=== PATIENT | female | born 1965 | race Two or more races ===

== ENCOUNTER 2018-12-19 20:09 | Emergency (ER) | payer OTHER ==
[2018-12-19 20:26] VITALS: BP 160/101; TEMP 98.3; BMI 28.3
--- NOTE | 2018-12-19 20:53 | PDOC ---
History of Present Illness - General Chief Complaint: Shortness of Breath Stated Complaint: DIFFICULTY BREATHING Time Seen by Provider: 12/19/18 20:36 History Source: Patient Exam Limitations: No Limitations - History of Present Illness Initial Comments: 12/19/18 20:48 53yo F with PMH of HTN, HLD presenting to ED with sob and cough that started yesterday. Pt was diagnosed with pneumonia at PMD office 2 weeks ago. She was given antibiotics and a steroid pack. She states the medications was finished 4d ago on . Since yesterday, the cough as returned and it is worse than when she was originally diagnosed. She is coughing up clear sputum. She endorses sob and chest pain when she coughs and endorses low grade fever (99) yesterday night. Denies headache, n/v/d, abdominal pain, exertional cp, back pain, sick contacts, recent travel, leg swelling. PMH: see hpi PSH: none Meds: metoprolol, atorvastatin Allergies: nkda Social: denies tobacco use PMD: Rosy Hernandez Past History - Past Medical History Allergies/Adverse Reactions: Allergies Allergy/AdvReac Type Severity Reaction Status Date / Time No Known Allergies Allergy Verified 12/19/18 20:26 Home Medications: Ambulatory Orders Albuterol Sulfate Inhaler - [Ventolin HFA Inhaler -] 1 - 2 inh PO QID #1 inhaler 12/19/18 COPD: No GI Disorders: (HEARTBURN) HTN: Yes Hypercholesterolemia: Yes - Surgical History Abdominal Surgery: Yes Appendectomy: Yes - Suicide/Smoking/Psychosocial Hx Smoking History: Unknown if ever smoked Hx Alcohol Use: No Drug/Substance Use Hx: No Substance Use Type: None Hx Substance Use Treatment: No Review of Systems - Review of Systems Constitutional: Yes: Fever. No: Chills HEENTM: No: Symptoms Reported Respiratory: Yes: Cough, Shortness of Breath. No: Stridor, Wheezing, Hemoptysis Cardiac (ROS): Yes: See HPI, Chest Pain. No: Lightheadedness, Palpitations, Syncope ABD/GI: No: Symptoms Reported : No: Symptoms Reported Musculoskeletal: No: Symptoms Reported Integumentary: No: Symptoms Reported Neurological: No: Symptoms reported *Physical Exam - Vital Signs Last Vital Signs Temp Pulse Resp BP Pulse Ox 98.3 F 95 H 18 160/101 H 100 12/19/18 20:22 12/19/18 20:22 12/19/18 20:22 12/19/18 20:22 12/19/18 20:22 - Physical Exam General Appearance: Yes: Nourished, Appropriately Dressed. No: Apparent Distress HEENT: positive: EOMI, EZEKIEL, Normal ENT Inspection Neck: positive: Trachea midline, Supple Respiratory/Chest: positive: Lungs Clear, Normal Breath Sounds. negative: Crackles, Rhonchi, Stridor, Wheezing Cardiovascular: positive: Regular Rhythm, Regular Rate, S1, S2. negative: Edema , JVD, Murmur Vascular Pulses: Dorsalis-Pedis (R): 2+, Doralis-Pedis (L): 2+ Gastrointestinal/Abdominal: positive: Normal Bowel Sounds, Soft. negative: Tender Musculoskeletal: negative: CVA Tenderness Extremity: positive: Normal Capillary Refill Integumentary: positive: Normal Color, Dry, Warm Neurologic: positive: brick yard hand II-XII NML intact, Fully Oriented, Alert, Normal Mood/ Affect, Normal Response, Motor Strength 09/25 ED Treatment Course - LABORATORY CBC & Chemistry Diagram: 12/19/18 21:17 12/19/18 22:15 - RADIOLOGY Radiology Studies Ordered: Category Date Time Status CHEST PA & LAT [RAD] Stat Radiology 12/19/18 20:37 Ordered Medical Decision Making - Medical Decision Making 12/19/18 20:52 53yo F with PMH of HTN, HLD presenting to ED with sob and cough that started yesterday. Pt was diagnosed with pneumonia at PMD office 2 weeks ago. She was given antibiotics and a steroid pack. She states the medications was finished 4d ago on . Since yesterday, the cough as returned and it is worse than when she was originally diagnosed. She is coughing up clear sputum. She endorses sob and chest pain when she coughs and endorses low grade fever (99) yesterday night. Denies headache, n/v/d, abdominal pain, exertional cp, back pain, sick contacts, recent travel, leg swelling. Vitals: hypertension PE: lungs cta, dry cough Ddx includes but not limited to pna, post nasal drip, ptx, acs, pe Wells: low suspicion for pe. more likely cough and sob due to pna or post nasal drip. -labs -duonebs -ekg, cxr ek12/19/18 23:11 labs wnl. pt reports feeling better after breathing treatments. cxr: no infiltrates, consolidations or effusion. *DC/Admit/Observation/Transfer Diagnosis at time of Disposition: Cough, Bronchitis - Discharge Dispostion Disposition: HOME Condition at time of disposition: Improved Decision to Admit order: No - Prescriptions Prescriptions: Albuterol Sulfate Inhaler - [Ventolin HFA Inhaler -] 1 - 2 inh PO QID #1 inhaler - Referrals Referrals: Lebron Hernandez MD [Primary Care Provider] - - Patient Instructions Printed Discharge Instructions: DI for Cough -- Adult Additional Instructions: You were seen in the emergency room today for cough. This is likely due to a viral infection or a bronchitis. This cough can last for a few weeks. Keep yourself well hydrated, you can take cough drops as needed. A prescription for an inhaler was sent to your pharmacy. Use as directed. You can take Nyquil or dextromethorphan for cough as needed. Please make an appointment with your doctor regarding this emergency department visit. Come back to the emergency room if cough gets worse, you develop fever, you have difficulty breathing, you cough up phlegm, you develop chest pains or if any new concerning symptom develops. Thank you - Post Discharge Activity
[2018-12-19 21:39] LABS: BASO % 0.8 % (0-2.0); EOS % 2.5 % (0-4.5); HEMATOCRIT 38.1 % (32.4-45.2); MCH 25.6 pg (25.7-33.7); MEAN CELL VOLUME 75.3 fl (80-96); MEAN PLT VOLUME 7.9 fl (7.5-11.1); MONO % 7.9 % (3.8-10.2); NEUT % 59.8 % (42.8-82.8); PLATELET COUNT 265 K/MM3 (134-434); RBC 5.06 M/mm3 (3.60-5.2); WHITE BLOOD COUNT 9.6 K/mm3 (4.0-10.0)
[2018-12-19] MEDS ORDERED: ALBUTEROL SO4 2.5/IPRATROPIUM 0.5 INH SOL 3 ML VIAL.NEB. NEB ONE ×4 (21:50→22:21)
[2018-12-19 22:33] VITALS: PULSE 90
[2018-12-19 23:07] LABS: ALBUMIN 3.8 g/dl (3.4-5.0); BILIRUBIN,TOTAL 0.5 mg/dL (0.2-1); BLOOD UREA NITROGEN 15.1 mg/dL (7-18); CALCIUM 9.2 mg/dL (8.5-10.1); CREATININE 0.8 mg/dL (0.55-1.3); POTASSIUM 4.1 mmol/L (3.5-5.1)
--- NOTE | 2018-12-19 23:50 | PDOC ---
Documentation entered by Juan J Gupta SCRIBE, acting as scribe for María Florence MD. María Florence MD: This documentation has been prepared by the Candy weiss Elijah, SCRIBE, under my direction and personally reviewed by me in its entirety. I confirm that the documentation accurately reflects all work, treatment, procedures, and medical decision making performed by me. Attending Attestation - Resident Resident Name: Loretta Alaniz - ED Attending Attestation I have performed the following: I have examined & evaluated the patient, The case was reviewed & discussed with the resident, I agree w/resident's findings & plan - HPI HPI: 12/19/18 21:59 Patient is a 53 year old female with a significant past medical history of HTN and HLD who presents to the ED with a worsening productive cough of clear sputum beginning x1 day prior. Patient was recently diagnosed with Pneumonia by her PCP x1 week ago and was given antibiotics that finished x4 days ago. Patient notes that her cough has returned associates SOB, chest pain and fever. Denies headache, Nausea, vomiting, and diarrhea. Allergies: NKA PCP: Dr. Hernandez - Physicial Exam PE: 12/19/18 22:03 GENERAL: Awake, alert, and fully oriented, in no acute distress HEAD: No signs of trauma EYES: PERRLA, EOMI, sclera anicteric, conjunctiva clear ENT: Auricles normal inspection, hearing grossly normal, nares patent, oropharynx clear without exudates. Moist mucosa NECK: Normal ROM, supple, no lymphadenopathy, JVD, or masses LUNGS: Breath sounds equal, clear to auscultation bilaterally. No wheezes, and no crackles HEART: Regular rate and rhythm, normal S1 and S2, no murmurs, rubs or gallops ABDOMEN: Soft, nontender, normoactive bowel sounds. No guarding, no rebound. No masses EXTREMITIES: Normal range of motion, no edema. No clubbing or cyanosis. No cords, erythema, or tenderness NEUROLOGICAL: Cranial nerves II through XII grossly intact. Normal speech, normal gait SKIN: Warm, Dry, normal turgor, no rashes or lesions noted. - Medical Decision Making 12/19/18 21:56 53-year-old female with several weeks of coughing and being diagnosed pneumonia by Dr. Lebron Hernandez in his office. She finished her medications that were prescribed to her on , but states coughing is now getting worse. She has anterior chest wall pain from her coughing. Past medical history significant for hypertension and hyperlipidemia 12/19/18 21:56 social history patient states she is a nonsmoker, does not use alcohol 12/19/18 23:34 labs are unremarkable 12/19/18 23:46 chest x-ray did not show any significant effusions, no consolidation and no infiltrates. she is not febrile and her CBC is unremarkable chemistries reviewed and troponin is negative, no metabolic abnormalities noted the patient did receive bronchodilator treatments and felt better. Patient is 100% pulse ox on room air. She is not hypoxic, she does not have any retractions with breathing her EKG is unremarkable. Impression bronchitis/reactive airway disease Plan patient will be discharged with prescription for bronchodilators, cough medicine
--- NOTE | 2018-12-20 09:29 | EKG ---
Test Reason : Blood Pressure : / mmHG Vent. Rate : 123 BPM Atrial Rate : 092 BPM P-R Int : 144 ms QRS Dur : 074 ms QT Int : 346 ms P-R-T Axes : 019 034 056 degrees QTc Int : 495 ms NORMAL SINUS RHYTHM BASELINE ARTIFACT OTHERWISE NORMAL ECG Confirmed by Ish Alonzo MD ([id number]) on 12/20/2018 9:28:56 AM Referred By: Confirmed By:Ish Alonzo MD
== END 2018-12-20 00:07 | disposition home or self-care (01) ==
LOC: JER 20:09
PROC: 3E0F7GC Introduction of Other Therapeutic Substance into Respiratory Tract, Via Natural or Artificial Opening (ICD-10-PCS; principal; 2018-12-19)
PROC: 3E0F7GC Introduction of Other Therapeutic Substance into Respiratory Tract, Via Natural or Artificial Opening (ICD-10-PCS; 2018-12-19)
DX: J40 Bronchitis, not specified as acute or chronic (principal); I10 Essential (primary) hypertension; E78.5 Hyperlipidemia, unspecified; Z87.01 Personal history of pneumonia (recurrent)
CPT/HCPCS: 36415; 71046-TC-FY; 80053; 84484; 85025; 93005; 93010; 94640; 99283-25

== ENCOUNTER 2019-04-17 08:53 | Observation (INO) | payer OTHER ==
[2019-04-17] MEDS ORDERED: SODIUM CHLORIDE 1,000 ML IV SCH (09:15)
--- NOTE | 2019-04-17 09:15 | PDOC ---
History of Present Illness - General Chief Complaint: CVA/TIA Stated Complaint: LT SIDE HEADACHE/NECK/ARM PAIN Time Seen by Provider: 04/17/19 09:15 History Source: Patient Exam Limitations: No Limitations - History of Present Illness Initial Comments: 54 year old female with PMH HTN, HLD, chronic headaches (1X a week, frontal, band like) presented to ED for left sided headache associated with left sided neck pain and left upper extremity weakness x3 weeks. Pt reported she did not take her medications this AM, as she did not eat breakfast, but usually is compliant and has not noticed her BP has been out of control lately. She reported her headache today is left sided, which is not in her usual headache location, constant, pounding, alleviated momentarily by Tylenol but always returns. Pt reported her headaches are usually ammenable to Tylenol. She denied fever, chest pain, shortness of breath, cough, nausea, vomiting, recent injury, recent heavy lifting. She admitted to intermittent room spinning episodes over the last week. She reported she has had similar room spinning episodes x2 years ago, but was never given medication or an explanation. ROS General: denied fever, chills, generalized weakness. HEENT: denied sore throat, rhinorrhea, ear pain. Cardiovascular: denied chest pain, palpitations, syncope, diaphoresis. Respiratory: denied shortness of breath, cough, sputum production, hemoptysis. Gastrointestinal: denied abdominal pain, nausea, vomiting, diarrhea, constipation, blood in stool. Genitourinary: denied dysuria, increased urinary frequency, hematuria, urinary incontinence, flank pain. Back: denied back pain. Musculoskeletal: denied joint pain, muscle pain, joint swelling. Neurological: admitted to headache, dizziness, weakness. denied numbness, tingling. Integumentary: denied rash, laceration, abrasion. Hematologic/Lymphatic: denied bruising or bleeding. PE Constitutional: Well-nourished, Well-developed, appearing stated age. HEENT: head is normocephalic, atraumatic. EOMI. PERRLA. Neck: supple. Full ROM. Cardiovascular: regular heart rhythm. no murmurs. no pericardial friction rub. Respiratory: clear to auscultation bilaterally. no crackles, rhonchi or wheezing. no stridor. Gastrointestinal: soft, nontender. normal bowel sounds. no rebound, guarding, masses. Extremities: peripheral pulses intact. no lower extremity edema. Neurological: alert. oriented x3. CN2-12 intact. 5/5 strength all extremities, but decreased ballistics laboratory gunsmith strength on the left hand when compared to the right hand. normal ankle plantar flexion. full sensation all extremities and bilateral face , but reported decreased sensation to the LLE. romberg negative. no ataxia. gait normal. Psych: awake, alert, oriented x3. follows commands. answers questions appropriately. NIH Stroke Scale - Last Known Well Date/Time & Onset Date Last Known Well: 03/27/19 - Initial Evaluation Level of consciousness: Alert Ask patient the month and their age: Answers both correctly Ask patient to open & close eyes; make fist and let go: Obeys both correctly Best gaze (horizontal eye movement): Normal Visual field testing: No visual field loss Facial paresis (Show teeth/raise eyebrows/close eyes tight): Normal symmetrical movement Motor Function: Left Arm: Normal Motor Function: Right Arm: Normal (extends arm 90 (or 45) degrees for 10 seconds without drift Motor Function: Left Leg: Normal (extends leg 30 degrees for 5 seconds without drift) Motor Function: Right Leg: Normal (extends leg 30 degrees for 5 seconds without drift) Limb Ataxia: No ataxia Sensory(Use pinprick test arms,legs,trunk,face/side to side): Mild to moderate decrease in sensation Best language (Describe picture, name items, read sentences): No Aphasia Dysarthria (read several words): Normal articulation Extinction and Inattention: No abnormality - Total Score NIH Stroke Scale Score: 1 Past History - Past Medical History Allergies/Adverse Reactions: Allergies Allergy/AdvReac Type Severity Reaction Status Date / Time No Known Allergies Allergy Verified 04/17/19 09:03 Home Medications: Ambulatory Orders Albuterol Sulfate Inhaler - [Ventolin HFA Inhaler -] 1 - 2 inh PO QID #1 inhaler 12/19/18 - Immunization History Immunization Up to Date: Yes - Psycho Social/Smoking Cessation Hx Smoking History: Never smoked Information on smoking cessation initiated: No Hx Alcohol Use: No Drug/Substance Use Hx: No Substance Use Type: None Hx Substance Use Treatment: No *Physical Exam - Vital Signs Last Vital Signs Temp Pulse Resp BP Pulse Ox 98.2 F 88 17 170/110 H 98 04/17/19 09:03 04/17/19 09:03 04/17/19 09:03 04/17/19 09:03 04/17/19 09:03 ED Treatment Course - LABORATORY CBC & Chemistry Diagram: 04/17/19 09:40 04/17/19 09:40 Medical Decision Making - Medical Decision Making 54 year old female with above PMH presented to ED for left sided headache, left sided neck pain, left upper extremity weakness. Initial Vital Signs Temp Pulse Resp BP Pulse Ox 98.2 F 88 17 170/110 H 98 04/17/19 09:03 04/17/19 09:03 04/17/19 09:03 04/17/19 09:03 04/17/19 09:03 Afebrile. No tachycardia. No tachypnea. Hypertensive. No hypoxia on room air. Labs ordered: CBC, CMP, mag, serum , UA/UC, lipids, bnp, troponin Imaging ordered: CT head, CT cervical spine, CXR Medications ordered: tylenol IV, reglan 10 mg IV once, benadryl 25 mg IV once, normal saline bolus 1000 cc once EKG performed at 0909: rate 81, regular rhythm, normal axis, normal intervals, no acute ST changes. 04/17/19 13:39 CT head report: Name: [facility] DEPARTMENT OF RADIOLOGY Phys: Juani Sam RESIDENT : 1965 Age: 54 Sex: F [facility] Acct: [id number] Loc: [address] Exam Date: 04/17/19 Status: [place] [address] Unit Number: [id number] EXAM#: TYPE/EXAM: RESULT: [id number] CT/HEAD CT (STROKE) History: CVA, TIA. CT scan of the brain c-. Comparison study: CT brain July 06, 2014. . Findings. Serial axial images of the brain were obtained from foramen magnum to the cranial vertex without intravenous contrast with coronal, sagittal reconstruction.. There is no evidence of acute subarachnoid hemorrhage, acute intra-axial or extra-axial fluid collection consistent with subdural or epidural hematoma. No mass effect, midline shift, acute ischemic changes, herniation or edema is present. No evidence of effacement of the cortical sulci , zone of low attenuation, loss mirza matter white matter differentiation. The CSF spaces unchanged from prior examination. No evidence of hydrocephalus. Intracranial vascular calcifications are noted. Examination of the bone windows show no fracture. The visualized paranasal sinuses and mastoid air cells are clear. Impression. No evidence of acute intracranial hemorrhage, edema, midline shift, mass effect, or skull fracture. No CT evidence of acute territorial, acute transcortical infarct. Reported By: Rory Zabala MD 04/17/[address] cervical spine report: Name: JEET SMITH DEPARTMENT OF RADIOLOGY Phys: Juani Sam RESIDENT : 1965 Age: 54 Sex: F [facility] Acct: [id number] Loc: [address] Exam Date: 04/17/19 Status: [place] [id number] Unit Number: [id number] ACCESSION # : [id number] EXAM#: TYPE/EXAM: RESULT: [id number] CT/CERVICAL SPINE CT W/O CONTR Reason for the study. Neck pain with left-sided weakness CT scan of the cervical spine C-. Direct axial images were obtained from the base of the skull through T2-T3.. The study was supplemented with computer-generated sagittal, coronal reconstruction images. Findings. Straightening of the cervical spine is noted on the sagittal reconstruction images. No acute fracture, compression deformity, of subluxation is seen. Normal relationship of odontoid to anterior arch of C1. Intact odontoid. Symmetrical articulation of atlantoaxial and occipito atlantal joints. The visualized portion of the posterior fossa, skull base, and uppermost of the thoracic spine show no abnormality. Normal height of vertebral bodies. No evidence of central spinal canal stenosis. No evidence of significant neural foraminal narrowing. The intraspinal contents cannot be adequately evaluated due to the beam hardening artifacts. The airways are patent. No evidence of prevertebral soft tissue swelling. The lung apices are clear. Medial deviation, retropharyngeal course of the left distal common carotid artery. Impression. No evidence of acute fracture, compression deformities, subluxation, prevertebral soft tissue swelling. Reported By: Rory Zabala MD 04/17/[address] Alberts consulted, he recommended MRI brain and c-spine without contrast. Pt informed of results and plan for care, pt agreed with plan for care. Pt reported resolution of her headache. Pt to be admitted. PCP Mary --> Rodo Discharge - Discharge Information Problems reviewed: Yes Clinical Impression/Diagnosis: Left hand weakness Headache Qualifiers: Headache type: unspecified Headache chronicity pattern: acute headache Intractability: not intractable Qualified Code(s): R51 - Headache Condition: Stable - Admission Yes - Follow up/Referral Referrals: Lebron Hernandez MD [Primary Care Provider] - - Patient Discharge Instructions - Post Discharge Activity
[2019-04-17] MEDS ORDERED: ACETAMINOPHEN 1000 MG/100 ML VIAL (NON FORMULARY) IVPB ONE (09:30)
[2019-04-17] MEDS ORDERED: METOCLOPRAMIDE HCL INJECTION 10 MG/2 ML VIAL IVPUSH ONE (09:30)
[2019-04-17] MEDS ORDERED: ACETAMINOPHEN INJECTION 100 ML IVPB ONE (09:34)
[2019-04-17] MEDS ORDERED: METOCLOPRAMIDE HCL INJECTION 10 MG/2 ML VIAL ONE (09:34)
[2019-04-17 10:28] LABS: PROTHROMBIN TIME (PATIENT) 11.8 SEC (9.7-13.0)
[2019-04-17 10:31] LABS: ACTIVATED PTT 33.6 SECONDS (25.2-36.5)
[2019-04-17 10:45] LABS: ALBUMIN 3.8 g/dl (3.4-5.0); BILIRUBIN,TOTAL 0.4 mg/dL (0.2-1); BLOOD UREA NITROGEN 10.7 mg/dL (7-18); CALCIUM 9.2 mg/dL (8.5-10.1); CREATININE 0.8 mg/dL (0.55-1.3); POTASSIUM 3.9 mmol/L (3.5-5.1); TOT PROT 7.8 g/dl (6.4-8.2)
[2019-04-17 10:55] LABS: HEMOGLOBIN 11.9 GM/dL (10.7-15.3); MEAN PLT VOLUME 8.3 fl (7.5-11.1); RDW 14.5 % (11.6-15.6)
[2019-04-17 11:02] LABS: MAGNESIUM 2.4 mg/dL (1.8-2.4); N-TERMINAL BNP 56.3 pg/ml (5-125); PHOSPHOROUS 3.4 mg/dL (2.5-4.9)
[2019-04-17 11:08] LABS: BASO % 0.5 % (0-2.0); HEMATOCRIT 35.2 % (32.4-45.2); LYMPH % 35.3 % (8-40); MCH 25.6 pg (25.7-33.7); MCHC 33.9 g/dl (32.0-36.0); MEAN CELL VOLUME 75.5 fl (80-96); MONO % 10.9 % (3.8-10.2); NEUT % 51.3 % (42.8-82.8); PLATELET COUNT 230 K/MM3 (134-434); RBC 4.66 M/mm3 (3.60-5.2); WHITE BLOOD COUNT 5.8 K/mm3 (4.0-10.0)
[2019-04-17 11:16] LABS: PH,URINE 6.5 (5.0-8.0); URINE APPEARANCE CLEAR; URINE BILIRUBIN NEGATIVE (NEGATIVE); URINE COLOR YELLOW; URINE GLUCOSE (UA) NEGATIVE (NEGATIVE); URINE KETONE NEGATIVE (NEGATIVE); URINE LEUK ESTERASE NEGATIVE (NEGATIVE); URINE NITRITE NEGATIVE (NEGATIVE); URINE PROTEIN NEGATIVE (NEGATIVE); URINE UROBILINOGEN 0.2 mg/dL (0.2-1.0)
--- NOTE | 2019-04-17 11:21 | PDOC ---
Documentation entered by Henry Ascencio SCRIBE, acting as scribe for Leann Sun MD. Leann Sun MD: This documentation has been prepared by the Sonu weiss Nirvannie, SCRIBE, under my direction and personally reviewed by me in its entirety. I confirm that the documentation accurately reflects all work, treatment, procedures, and medical decision making performed by me. Attending Attestation - Resident Resident Name: Juani Sam - ED Attending Attestation I have performed the following: I have examined & evaluated the patient, The case was reviewed & discussed with the resident, I agree w/resident's findings & plan, Exceptions are as noted - HPI HPI: 04/17/19 09:45 The patient is a 54 year old female, with a significant past medical history of HTN, HLD, who presents to the emergency department with 3 weeks of a left-sided headache with radiation down to the left neck with associated left upper extremity weakness. Denies numbness. Patient describes her headache as constant , different from her weekly band-like headaches, and minimally improved with Tylenol. States the pain in her neck feels like "throbbing." Patient notes associated intermittent room spining dizziness last week. She presented today as she was unable to sleep last night due to the neck pain. While in the ED, patients blood pressure is elevated which she constitutes to not taking her AM medications secondary to not having breakfast. Patient was evaluated by her PCP for similar symptoms. She denies any recent head/neck trauma or LOC. Denies visual sxs. Denies F/C. She denies recent chest pain or shortness of breath.She denies recent nausea, vomiting, diarrhea or constipation. She denies recent dysuria, frequency, urgency or hematuria. Allergies: NKDA Primary Care Physician: Dr. Rosy Hernandez - Physicial Exam PE: 04/17/19 11:06 GENERAL: Awake, alert, and fully oriented, in no acute distress HEAD: No signs of trauma EYES: PERRLA, EOMI, sclera anicteric, conjunctiva clear ENT: Oropharynx clear without exudates. Moist mucosa NECK: Normal ROM, supple, no lymphadenopathy, JVD, or masses LUNGS: Breath sounds equal, clear to auscultation bilaterally. No wheezes, and no crackles HEART: Regular rate and rhythm, normal S1 and S2, no murmurs, rubs or gallops ABDOMEN: Soft, nontender, normoactive bowel sounds. No guarding, no rebound. No masses EXTREMITIES: Normal range of motion, no edema. No clubbing or cyanosis. No cords, erythema, or tenderness. WWP, 2+ peripheral pulses. BACK: no midline cervical, thoracic, or lumbar ttp. No lesions on neck. NEUROLOGICAL: Normal speech, cranial nerves intact, negative pronator drift, slightly weaker L hand water resource consultant strength, normal cerebellar exam, normal gait, normal reflexes and tone SKIN: Warm, Dry, normal turgor, no rashes or lesions noted. - Medical Decision Making 04/17/19 11:17 54yo F, hx HTN, HL presents to the ED with 3 weeks of L sided headache, neck pain, and LUE weakness Vitals initially with elevated BP, however pt skipped her BP meds this AM Exam with decreased L hand water resource consultant strength DDx includes carotid dissection vs radiculopathy vs atypical migraine vs CVA Plan for -labs -CTH, CT-cpine -headache cocktail -consider CTA neck, further w/u after discussion with neuro -reassess 04/17/19 15:00 Labs with elevated cholesterol, otherwise within normal limits. CT head and cervical spine within normal limits. Case discussed with Dr. Real from neurology. He recommends an MR brain without contrast as well as an MR cervical spine without contrast. He recommends that if she has a stroke on MRI brain, then she may require dedicated imaging of neck vasculature to rule out dissection. Case discussed with Dr. Koehler, patient accepted for admission. Case discussed in detail with admitting physician including history, physical exam and ancillary studies. Admitting physician has assumed care for the patient, will follow all pending diagnostics and will complete the evaluation and treatment. Heart Score/ECG Review #1 04/17/19 11:21 Twelve-lead EKG was performed and reviewed by me. Normal sinus rhythm, rate 81. Normal axis and intervals. No ST elevations or T wave inversions.
--- NOTE | 2019-04-17 15:56 | EKG ---
Test Reason : Blood Pressure : / mmHG Vent. Rate : 081 BPM Atrial Rate : 081 BPM P-R Int : 144 ms QRS Dur : 084 ms QT Int : 370 ms P-R-T Axes : 027 032 054 degrees QTc Int : 429 ms NORMAL SINUS RHYTHM NORMAL ECG WHEN COMPARED WITH ECG OF 19-DEC-2018 20:43, VENT. RATE HAS DECREASED BY 42 BPM Confirmed by ARMAND TURPIN MD ([id number]) on 04/17/2019 3:56:13 PM Referred By: Confirmed By:ARMAND TURPIN MD
[2019-04-17] MEDS ORDERED: ALBUTEROL SO4 2.5/IPRATROPIUM 0.5 INH SOL 3 ML VIAL.NEB. NEB PRN (23:03)
[2019-04-17 23:04] VITALS: BMI 29.8
[2019-04-17] MEDS: traMADol HCL 50 MG TABLET PO PRN (23:09)
[2019-04-18 07:04] LABS: BASO % 0.8 % (0-2.0); EOS % 2.9 % (0-4.5); HEMATOCRIT 35.2 % (32.4-45.2); HEMOGLOBIN 12.1 GM/dL (10.7-15.3); LYMPH % 43.1 % (8-40); MCHC 34.4 g/dl (32.0-36.0); MEAN CELL VOLUME 75.5 fl (80-96); MEAN PLT VOLUME 7.7 fl (7.5-11.1); MONO % 9.7 % (3.8-10.2); NEUT % 43.5 % (42.8-82.8); PLATELET COUNT 213 K/MM3 (134-434); RBC 4.67 M/mm3 (3.60-5.2); RDW 14.3 % (11.6-15.6); WHITE BLOOD COUNT 5.3 K/mm3 (4.0-10.0)
[2019-04-18 07:43] LABS: ALBUMIN 3.8 g/dl (3.4-5.0); BILIRUBIN,TOTAL 0.6 mg/dL (0.2-1); CALCIUM 8.8 mg/dL (8.5-10.1); CREATININE 0.7 mg/dL (0.55-1.3); POTASSIUM 3.7 mmol/L (3.5-5.1); TOT PROT 7.5 g/dl (6.4-8.2)
--- NOTE | 2019-04-18 09:11 | CONSULT ---
Consult - text type - Consultation Consultation Note: Neurology History of Present Illness Chief Complaint: CVA/TIA Stated Complaint: LT SIDE HEADACHE/NECK/ARM PAIN - History of Present Illness Initial Comments: 54 year old female with PMH HTN, HLD, chronic headaches (1X a week, frontal, band like) presented to ED for left sided headache associated with left sided neck pain and left upper extremity weakness x3 weeks. Pt reported she did not take her medications the morning of admission, as she did not eat breakfast, but usually is compliant and has not noticed her BP has been out of control lately. She reported her headache was left sided, which is not in her usual headache location, constant, pounding, alleviated momentarily by Tylenol but always returns. Pt reported her headaches are usually ammenable to Tylenol. She denied fever, chest pain, shortness of breath, cough, nausea, vomiting, recent injury, recent heavy lifting. She admitted to intermittent room spinning episodes over the last week. She reported she has had similar room spinning episodes x2 years ago, but was never given medication or an explanation. CT head completed and did not show any evidence of acute abnormalities. CT cervical spine completed and did not show any cervical spinal stenosis or neural foraminal narrowing. Patient reports feeling better this morning with less discomfort in her neck and improvement in her left upper extremity strength, near baseline. Past History - Past Medical History HTN, HLD Allergies/Adverse Reactions: Allergies Allergy/AdvReac Type Severity Reaction Status Date / Time No Known Allergies Allergy Verified 04/17/19 09:03 Home Medications: Ambulatory Orders Albuterol Sulfate Inhaler - [Ventolin HFA Inhaler -] 1 - 2 inh PO QID #1 inhaler 12/19/18 Active Medications Albuterol/Ipratropium (Duoneb -) 1 amp NEB Q6H PRN PRN Reason: SHORTNESS OF BREATH Alprazolam (Xanax -) 0.25 mg PO ONCE ONE Stop: 04/18/19 12:01 Losartan Potassium (Cozaar -) 50 mg PO HS LYNNE Metoprolol Tartrate (Lopressor -) 50 mg PO BID LYNNE Tramadol HCl (Ultram -) 50 mg PO Q8H PRN PRN Reason: pain 2-10 Last Admin: 04/17/19 23:09 Dose: 50 mg - Immunization History Immunization Up to Date: Yes - Psycho Social/Smoking Cessation Hx Smoking History: Never smoked Information on smoking cessation initiated: No Hx Alcohol Use: No Drug/Substance Use Hx: No Substance Use Type: None Hx Substance Use Treatment: No FAMILY: HTN ROS General: denied fever, chills, generalized weakness. HEENT: denied sore throat, rhinorrhea, ear pain. Cardiovascular: denied chest pain, palpitations, syncope, diaphoresis. Respiratory: denied shortness of breath, cough, sputum production, hemoptysis. Gastrointestinal: denied abdominal pain, nausea, vomiting, diarrhea, constipation, blood in stool. Genitourinary: denied dysuria, increased urinary frequency, hematuria, urinary incontinence, flank pain. Back: denied back pain. Musculoskeletal: denied joint pain, muscle pain, joint swelling. Neurological: admitted to headache, dizziness, weakness. denied numbness, tingling. Integumentary: denied rash, laceration, abrasion. Hematologic/Lymphatic: denied bruising or bleeding. *Physical Exam Vital Signs Period Temp Pulse Resp BP Sys/Crenshaw Pulse Ox Last 24 Hr 97.9 F-98.6 F 67-70 18-20 149-181/80-95 95-99 PE Constitutional: Well-nourished, Well-developed, appearing stated age. HEENT: head is normocephalic, atraumatic. EOMI. PERRLA. Neck: supple. Full ROM. Cardiovascular: regular heart rhythm. no murmurs. no pericardial friction rub. Respiratory: clear to auscultation bilaterally. no crackles, rhonchi or wheezing. no stridor. Gastrointestinal: soft, nontender. normal bowel sounds. no rebound, guarding, masses. Extremities: peripheral pulses intact. no lower extremity edema. Neurological: alert. oriented x3. CN2-12 intact. 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 normal ankle plantar flexion. full sensation all extremities and bilateral face , but reported decreased sensation to the LLE. romberg negative. no ataxia. gait normal. Psych: awake, alert, oriented x3. follows commands. answers questions appropriately. CBCD WBC 5.3 K/mm3 (4.0-10.0) 04/18/19 06:20 RBC 4.67 M/mm3 (3.60-5.2) 04/18/19 06:20 Hgb 12.1 GM/dL (10.7-15.3) 04/18/19 06:20 Hct 35.2 % (32.4-45.2) 04/18/19 06:20 MCV 75.5 fl (80-96) L 04/18/19 06:20 MCHC 34.4 g/dl (32.0-36.0) 04/18/19 06:20 RDW 14.3 % (11.6-15.6) 04/18/19 06:20 Plt Count 213 K/MM3 (134-434) 04/18/19 06:20 MPV 7.7 fl (7.5-11.1) 04/18/19 06:20 CMP Sodium 140 mmol/L (136-145) 04/18/19 06:20 Potassium 3.7 mmol/L (3.5-5.1) 04/18/19 06:20 Chloride 109 mmol/L (98-107) H 04/18/19 06:20 Carbon Dioxide 26 mmol/L (21-32) 04/18/19 06:20 Anion Gap 5 MMOL/L (8-16) L 04/18/19 06:20 BUN 11.0 mg/dL (7-18) 04/18/19 06:20 Creatinine 0.7 mg/dL (0.55-1.3) 04/18/19 06:20 Random Glucose 108 mg/dL (74-106) H 04/18/19 06:20 Calcium 8.8 mg/dL (8.5-10.1) 04/18/19 06:20 Total Bilirubin 0.6 mg/dL (0.2-1) 04/18/19 06:20 AST 26 U/L (15-37) 04/18/19 06:20 ALT 35 U/L (13-61) 04/18/19 06:20 Alkaline Phosphatase 111 U/L (45-117) 04/18/19 06:20 Total Protein 7.5 g/dl (6.4-8.2) 04/18/19 06:20 Albumin 3.8 g/dl (3.4-5.0) 04/18/19 06:20 CARDIAC ENZYMES Creatine Kinase 111 U/L (26-192) 04/17/19 09:40 Troponin I < 0.02 ng/ml (0.00-0.05) 04/17/19 09:40 Medical Decision Making 54 year old female with PMH HTN, HLD, chronic headaches (1X a week, frontal, band like) presented to ED for left sided headache associated with left sided neck pain and left upper extremity weakness x3 weeks. Pt reported she did not take her medications the morning of admission, as she did not eat breakfast, but usually is compliant and has not noticed her BP has been out of control lately. She reported her headache was left sided, which is not in her usual headache location, constant, pounding, alleviated momentarily by Tylenol but always returns. Pt reported her headaches are usually ammenable to Tylenol. She denied fever, chest pain, shortness of breath, cough, nausea, vomiting, recent injury, recent heavy lifting. She admitted to intermittent room spinning episodes over the last week. She reported she has had similar room spinning episodes x2 years ago, but was never given medication or an explanation. CT head completed and did not show any evidence of acute abnormalities. CT cervical spine completed and did not show any cervical spinal stenosis or neural foraminal narrowing. Patient reports feeling better this morning with less discomfort in her neck and improvement in her left upper extremity strength, near baseline. MRI brain ordered, awaiting completion. patient was on her way for echo and carotid Dopplers this morning during my visit, follow-up on results. If found to have CVA would recommend starting ASA 81mg daily, if no CVA on MRI then would not need to be on medication. Possibly cervical radiculopathy for which EMG can be done as outpatient. Monitor blood pressure, maintain < 140/90. Physical therapy as tolerated, monitor LDL elevated to 164, consider statin therapy. Can continue tylenol for headache (improved) for not more than 4 times per day and avoid on empty stomach. DVT prophylaxis
--- NOTE | 2019-04-18 11:03 | ECHO ---
Version: 1 Name: JEET SMITH Exam: Adult Echocardiogram Study Date: 04/18/2019, 8:53 AM Age: 54 Years MMode/2D Measurements & Calculations IVSd: 0.91 cm LVIDs: 2.31 cm LVIDd: 3.2 cm LVPWd: 0.94 cm LVOT diam: 2.06 cm Ao root diam: 3.0 cm LA dimension: 2.7 cm Doppler Measurements & Calculations MV E max cirilo: 71.8 cm/sec Med E/e': 9.7 MV A max cirilo: 60.1 cm/sec Med Peak E' Cirilo: 7.4 cm/sec MV E/A: 1.19 Lat E/e': 7.8 Lat Peak E' Cirilo: 9.2 cm/sec Ao max P.7 mmHg Ao V2 max: 128.5 cm/sec Left Ventricle The left ventricular size, thickness and function are normal. Ejection Fraction = 60%. The transmitr al spectral Doppler flow pattern is normal for age. Right Ventricle The right ventricle is normal in size and function. Atria Normal left and right atrial size and function. Mitral Valve The mitral valve is normal in structure and function. Tricuspid Valve The tricuspid valve is normal in structure and function. There was insufficient TR detected to calcu late RV systolic pressure. Aortic Valve The aortic valve is normal in structure and function. Trace aortic regurgitation. Pulmonic Valve The pulmonic valve is not well seen, but is grossly normal. Great Vessels The aortic root is normal size. Pericardium/Pleura There is no pericardial effusion. Summary Statements This was essentially a normal study. MD Sandra Ramesh04/18/2019, 11:02 AM Ordering Physician: Cecily Koehler Referring Physician: CECILY KOEHLER Performed By: Isabelle Drummond
[2019-04-18] MEDS: METOPROLOL TARTRATE 50 MG TABLET (FP) PO SCH ×2 (11:49→21:18)
--- NOTE | 2019-04-18 13:24 | HP ---
Admitting History and Physical - Past Medical History Cardiovascular: Yes: HTN, Hyperlipdemia ...LMP: 11/27/13 - Past Surgical History Past Surgical History: Yes: Appendectomy, , Tubal Ligation - Smoking History Smoking history: Never smoked - Alcohol/Substance Use Hx Alcohol Use: No Home Medications - Allergies Allergies/Adverse Reactions: Allergies Allergy/AdvReac Type Severity Reaction Status Date / Time No Known Allergies Allergy Verified 04/17/19 09:03 - Home Medications Home Medications: Ambulatory Orders Albuterol Sulfate Inhaler - [Ventolin HFA Inhaler -] 1 - 2 inh PO QID #1 inhaler 12/19/18 Losartan Potassium 50 mg PO HS 04/17/19 Metoprolol Tartrate [Lopressor -] 50 mg PO BID 04/17/19 Omeprazole 20 mg PO DAILY 04/17/19 Physical Examination Vital Signs: Vital Signs Temperature 98 F 04/18/19 06:54 Pulse Rate 69 04/18/19 06:54 Respiratory Rate 20 04/18/19 09:00 Blood Pressure 149/87 04/18/19 06:54 O2 Sat by Pulse Oximetry (%) 98 04/18/19 09:00 Labs: CBC, BMP 04/18/19 06:20 04/18/19 06:20
[2019-04-18] MEDS: traMADol HCL 50 MG TABLET PO PRN (16:05)
[2019-04-18] MEDS: ALPRAZolam 0.25 MG TABLET PO ONE (16:29)
[2019-04-18] MEDS ORDERED: LOSARTAN POTASSIUM 50 MG TABLET (FP) PO SCH (22:00)
[2019-04-19] MEDS ORDERED: ALPRAZolam 0.25 MG TABLET PO ONE (09:30)
[2019-04-19] MEDS: METOPROLOL TARTRATE 50 MG TABLET (FP) PO SCH (09:48)
[2019-04-19] MEDS: ALPRAZolam 0.25 MG TABLET PO ONE (09:49)
[2019-04-19 13:22] VITALS: BP 158/90; PULSE 67; TEMP 98.4
[2019-04-19] MEDS ORDERED: amLODIPine BESYLATE 2.5 MG TABLET (FP) PO ONE (13:30)
[2019-04-20] MEDS ORDERED: LOSARTAN POTASSIUM 50 MG TABLET (FP) PO SCH (10:00)
== END 2019-04-19 16:50 | disposition home or self-care (01) ==
LOC: JER 08:53 → INTOOBSV 13:45 → JERBED 13:45 → UNDOADMOB 13:45 → JERBED 21:42 → J4W 21:42 → JERBED 04-18 10:15
PROVIDERS: ADMIT Internal Medicine; ATTEND Internal Medicine
PROC: 3E033NZ Introduction of Analgesics, Hypnotics, Sedatives into Peripheral Vein, Percutaneous Approach (ICD-10-PCS; principal; 2019-04-18)
PROC: 3E033GC Introduction of Other Therapeutic Substance into Peripheral Vein, Percutaneous Approach (ICD-10-PCS; 2019-04-18)
PROC: 3E033GC Introduction of Other Therapeutic Substance into Peripheral Vein, Percutaneous Approach (ICD-10-PCS; 2019-04-18)
DX: R51 Headache (principal); M54.2 Cervicalgia; R29.898 Other symptoms and signs involving the musculoskeletal system; I10 Essential (primary) hypertension; E78.5 Hyperlipidemia, unspecified; Z90.49 Acquired absence of other specified parts of digestive tract; Z98.51 Tubal ligation status
CPT/HCPCS: 36415; 70450-TC; 72125-TC; 80053; 80061; 81003; 82550; 83721; 83735; 83880; 84100; 84484; 84703; 85025; 85610; 85730; 86850; 86900; 86901; 87086; 93005; 93010; 93306-TC; 93880-TC; 96374; 96375; 99285-25; G0378; J0131; J7030

== ENCOUNTER 2019-05-01 02:55 | Emergency (ER) | payer OTHER ==
[2019-05-01 03:09] VITALS: PULSE 65; TEMP 97.7; BMI 28.3
--- NOTE | 2019-05-01 03:12 | PDOC ---
History of Present Illness - General Chief Complaint: Blood Pressure Problem Stated Complaint: HYPERTENSION Time Seen by Provider: 05/01/19 03:12 History Source: Patient Exam Limitations: No Limitations - History of Present Illness Initial Comments: 05/01/19 03:29 Piper Russell is a 54yF w PMHx poorly controlled HTN presenting w headache and HTN. At midnight, had trouble falling asleep when she noted numbness and tingling over L temporal region becoming magnus head burning. Did not take any meds for pain. Took prescribed metoprolol last night but has not been taking prescribed losartan because she doesn't like taking 2 meds at once. Was seen in ED 2 weeks ago for headache and HTN, CT head did not show bleed. Waiting for MRI brain results done last week. Denies fever, nausea/vomiting, vision change, SOB, chest pain. Past History - Past Medical History Allergies/Adverse Reactions: Allergies Allergy/AdvReac Type Severity Reaction Status Date / Time No Known Allergies Allergy Verified 05/01/19 03:21 Home Medications: Ambulatory Orders Albuterol Sulfate Inhaler - [Ventolin HFA Inhaler -] 1 - 2 inh PO QID #1 inhaler 12/19/18 Losartan Potassium 50 mg PO HS 04/17/19 Metoprolol Tartrate [Lopressor -] 50 mg PO BID 04/17/19 Omeprazole 20 mg PO DAILY 04/17/19 COPD: No GI Disorders: (HEARTBURN) HTN: Yes Hypercholesterolemia: Yes - Surgical History Abdominal Surgery: Yes Appendectomy: Yes - Immunization History Immunization Up to Date: Yes - Psycho Social/Smoking Cessation Hx Smoking History: Never smoked Hx Alcohol Use: No Drug/Substance Use Hx: No Substance Use Type: None Hx Substance Use Treatment: No Review of Systems - Review of Systems Constitutional: No: Chills, Fever HEENTM: No: Eye Pain, Recent change in vision, Nose Pain, Mouth Pain Respiratory: No: Cough, Shortness of Breath Cardiac (ROS): No: Chest Pain, Palpitations, Syncope ABD/GI: No: Abdominal Distended, Constipated, Diarrhea, Nausea, Vomiting : No: Burning, Dysuria, Hematuria Musculoskeletal: No: Back Pain, Muscle Weakness, Neck Pain Integumentary: No: Bruising, Flushing, Lesions Neurological: Yes: Headache. No: Numbness, Seizure, Tingling, Tremors Psychiatric: No: Anxiety, Depression, Stressors Endocrine: No: Excessive Sweating, Flushing, Intolerance to Cold, Intolerance to Heat Hematologic/Lymphatic: No: Anemia, Blood Clots *Physical Exam - Vital Signs Last Vital Signs Temp Pulse Resp BP Pulse Ox 97.7 F 65 18 187/100 H 98 05/01/19 03:07 05/01/19 03:07 05/01/19 03:07 05/01/19 03:07 05/01/19 03:07 - Physical Exam General Appearance: Yes: Nourished, Appropriately Dressed, Mild Distress HEENT: positive: EOMI, EZEKIEL, Normal Voice, Hearing Grossly Normal. negative: Scleral Icterus (R), Tonsillar Exudate, Rhinorrhea, Sinus Tenderness Respiratory/Chest: positive: Lungs Clear, Normal Breath Sounds. negative: Chest Tender, Respiratory Distress, Crackles, Rales, Rhonchi, Stridor, Wheezing Cardiovascular: positive: Regular Rhythm, Regular Rate, S1, S2. negative: Edema , Murmur Extremity: positive: Normal Capillary Refill Integumentary: positive: Normal Color Neurologic: positive: buffet manager II-XII NML intact, Fully Oriented, Alert, Normal Mood/ Affect, Normal Response, Motor Strength 5/5, Responsive. negative: Facial Droop , Numbness, Sensory Deficit, Confused, Disoriented Medical Decision Making - Medical Decision Making 05/01/19 03:35 Piper Russell is a 54yF w PMHx poorly controlled HTN presenting w 3hrs headache and HTN d/t migraine and medication noncompliance. Low concern for CVA (no focal neuro deficits) vs subarachinoid hemorrhage (similar headaches in past , recent neg CT imaging). Given 1L NS, tylenol, reglan, benadryl for headache, home losartan for HTN. Repeat BP 178/98 still elevated but slightly Educated pt about HTN and medication compliance. DC home w PCP f/u. Discharge - Discharge Information Problems reviewed: Yes Clinical Impression/Diagnosis: Hypertensive urgency Migraine Qualifiers: Migraine type: without aura Status migrainosus presence: without status migrainosus Intractability: not intractable Qualified Code(s): G43.009 - Migraine without aura, not intractable, without status migrainosus Condition: Improved Disposition: HOME - Admission No - Follow up/Referral Referrals: Lebron Hernandez MD [Primary Care Provider] - - Patient Discharge Instructions Patient Printed Discharge Instructions: DI for High Blood Pressure Additional Instructions: You were seen for head burning and high blood pressure. You were given medication to relieve those symptoms Make an appointment to see your primary care doctor within the next 1-2 days about your high blood pressure. Take all of your prescribed blood pressure medication as directed. You can take tylenol or ibuprofen if you get a headache. Drink lots of water. Come back to the ED if you have vision changes, vomiting, or worsening headache despite medication. - Post Discharge Activity
[2019-05-01] MEDS ORDERED: LOSARTAN POTASSIUM 50 MG TABLET (FP) PO ONE (03:27)
[2019-05-01] MEDS ORDERED: SODIUM CHLORIDE 0.9% 500 ML INFUS.BAG IV ONE (03:27)
[2019-05-01] MEDS ORDERED: ACETAMINOPHEN 1000 MG/100 ML VIAL (NON FORMULARY) IVPB ONE (03:27)
[2019-05-01] MEDS ORDERED: METOCLOPRAMIDE HCL INJECTION 10 MG/2 ML VIAL IVPB ONE (03:27)
[2019-05-01] MEDS ORDERED: ACETAMINOPHEN INJECTION 100 ML IVPB ONE (03:32)
[2019-05-01] MEDS ORDERED: METOCLOPRAMIDE HCL INJECTION 10 MG/2 ML VIAL ONE (03:32)
[2019-05-01] MEDS ORDERED: LOSARTAN POTASSIUM 50 MG TABLET (FP) ONE (03:32)
--- NOTE | 2019-05-01 04:47 | PDOC ---
Attending Attestation - Resident Resident Name: VidhiBandar - ED Attending Attestation I have performed the following: I have examined & evaluated the patient, The case was reviewed & discussed with the resident, I agree w/resident's findings & plan, Exceptions are as noted - HPI HPI: 05/01/19 04:45 54 years old with past medical history significant for hypertension presents to the emergency department with a burning sensation over the left side of her head. No discrete headache but a burning sensation. No weakness no numbness no photophobia no headache Symptoms are mild persistent constant no exacerbating relieving factors. Patient was seen a few weeks ago for more significant headache had a negative head CT had a recent MRI she is scheduled follow-up with her doctor today for results No chest pain no shortness of breath no arm discomfort no nausea no vomiting no diarrhea no weakness numbness. - Physicial Exam PE: 05/01/19 04:46 Vitals: Triage Vital signs reviewed General Appearance: No acute distress, well nourished well developed, Head: Atraumatic, Eyes: Pupils equal reactive round, extraocular movement intact Cardiac: Regular rate and rhythym, no murmurs, no rubs, no gallops, Lungs: Clear to auscultation bilateral, good air movement bilaterally, Abdomen: Soft, non distended, normal bowel sounds, non tender to palpation Extremities: Full range of motion to all extremities, no cyanosis, clubbing, or edema Skin: Warm and dry, no rashes or lesions, no rash, no petechiae Psych: Normal mood, normal affect - Medical Decision Making 05/01/19 04:46 Patient presents ED with elevated blood pressure and burning sensation over the side of her head Patient given her home blood pressure medication IV Tylenol feels better normal neurologic examination she has an appointment with her PCP today blood pressure still slightly elevated 178/98 however it is improving recommend that she has her blood pressure rechecked this afternoon with her doctor to discuss further management Findings, the need for follow-up and strict return instructions discussed with patient.
[2019-05-01 04:50] VITALS: BP 178/98
== END 2019-05-01 05:17 | disposition home or self-care (01) ==
LOC: JER 02:55
PROC: 3E033NZ Introduction of Analgesics, Hypnotics, Sedatives into Peripheral Vein, Percutaneous Approach (ICD-10-PCS; principal; 2019-05-01)
PROC: 3E033GC Introduction of Other Therapeutic Substance into Peripheral Vein, Percutaneous Approach (ICD-10-PCS; 2019-05-01)
PROC: 3E033GC Introduction of Other Therapeutic Substance into Peripheral Vein, Percutaneous Approach (ICD-10-PCS; 2019-05-01)
DX: I16.0 Hypertensive urgency (principal); G43.009 Migraine without aura, not intractable, without status migrainosus
CPT/HCPCS: 96374; 96375; 99282-25; J0131

== ENCOUNTER 2019-06-07 11:11 | Observation (INO) | payer OTHER ==
--- NOTE | 2019-06-07 13:21 | PDOC ---
Documentation entered by Tracie Pinedo SCRIBE, acting as scribe for Sue Powell MD. Sue Powell MD: This documentation has been prepared by the Khris weiss Adrianna, SCRIBE, under my direction and personally reviewed by me in its entirety. I confirm that the documentation accurately reflects all work, treatment, procedures, and medical decision making performed by me. History of Present Illness - General Stated Complaint: CVA/TIA Time Seen by Provider: 06/07/19 11:18 History Source: Patient Exam Limitations: No Limitations - History of Present Illness Initial Comments: The patient is a 54 year old female, with a significant PMH of poorly controlled HTN, HLD, and recently diagnosed brain lesions and vessel inflammation (on MRI, being treated by Dr. Martinez), who presents to the ED for syncope. Patient notes she was working on her bills at ~8:30 am, when she suddenly felt lightheaded and needed to sit down. While sitting down, she notes she had difficulty comprehending her bills and everything felt garbled. She additionally complains of chest heaviness, left-sided facial numbness and tingling, and nausea. Patient called her to come home, and he had her call EMS. While EMS was at her house, EMS notes she syncopized. En route to the ED, patient syncopized x2. While in the ED, patient syncopized during medical evaluation. Patient denies difficulty with comprehending while in the ED, but does endorse still feeling lightheaded. She notes multiple episodes of similar symptoms, but today is significantly worse than her prior. Allergies: NKA, NKDA Surgical History: Appendectomy Social History: Denies EtOH, tobacco, or illicit drug use PCP: Dr. Hernandez Neurologist: Dr. Martinez Past History - Past Medical History Allergies/Adverse Reactions: Allergies Allergy/AdvReac Type Severity Reaction Status Date / Time No Known Allergies Allergy Verified 05/01/19 03:21 Home Medications: Ambulatory Orders Albuterol Sulfate Inhaler - [Ventolin HFA Inhaler -] 1 - 2 inh PO QID #1 inhaler 12/19/18 Losartan Potassium 50 mg PO HS 04/17/19 Metoprolol Tartrate [Lopressor -] 50 mg PO BID 04/17/19 Omeprazole 20 mg PO DAILY 04/17/19 COPD: No GI Disorders: (HEARTBURN) HTN: Yes Hypercholesterolemia: Yes - Surgical History Abdominal Surgery: Yes Appendectomy: Yes - Immunization History Immunization Up to Date: Yes - Psycho Social/Smoking Cessation Hx Smoking History: Never smoked Hx Alcohol Use: No Drug/Substance Use Hx: No Substance Use Type: None Hx Substance Use Treatment: No Review of Systems - Review of Systems Comments:: GENERAL/CONSTITUTIONAL: +Difficulty with comprehension. No fever or chills. No weakness. HEAD, EYES, EARS, NOSE AND THROAT: No change in vision. No ear pain or discharge. No sore throat. CARDIOVASCULAR: +Chest heaviness. No shortness of breath. RESPIRATORY: No cough, wheezing, or hemoptysis. GASTROINTESTINAL: +Nausea. No vomiting, diarrhea or constipation. GENITOURINARY: No dysuria, frequency, or change in urination. MUSCULOSKELETAL: No joint or muscle swelling or pain. No neck or back pain. SKIN: No rash NEUROLOGIC: +S/p multiple syncopal episodes. +Left-sided facial numbness. + Lightheadedness. No headache, vertigo. ENDOCRINE: No increased thirst. No abnormal weight change. HEMATOLOGIC/LYMPHATIC: No anemia, easy bleeding, or history of blood clots. ALLERGIC/IMMUNOLOGIC: No hives or skin allergy. *Physical Exam - Vital Signs Last Vital Signs Temp Pulse Resp BP Pulse Ox 98.5 F 76 18 124/79 99 06/07/19 11:23 06/07/19 11:23 06/07/19 11:23 06/07/19 11:23 06/07/19 11:23 - Physical Exam GENERAL: Awake, alert, and oriented. Appropriately answering all questions. The patient is in no acute distress. HEAD: Normal with no signs of trauma. EYES: PERRLA, EOMI, sclera anicteric, conjunctiva clear. ENT: Ears normal, nares patent, oropharynx clear without exudates. Moist mucous membranes. NECK: Normal range of motion, supple without lymphadenopathy, JVD, or masses. LUNGS: Breath sounds equal, clear to auscultation bilaterally. No wheezes, and no crackles. HEART:Regular rate and rhythm, normal S1 and S2 without murmur, rub or gallop. ABDOMEN: Soft, nontender, normoactive bowel sounds. No guarding, no rebound. No masses palpable. EXTREMITIES: Normal range of motion, no edema. No clubbing or cyanosis. No erythema, or tenderness. NEUROLOGICAL: Initially, cranial nerves II through XII grossly intact. Had one episode of not talking, not responding to painful stimuli. Although when propped eyes open, she blinked in response to visual confrontation. MUSCULOSKELETAL: Back nontender to palpation, no CVA tenderness SKIN: Warm, Dry, normal turgor, no rashes or lesions noted. ED Treatment Course - LABORATORY CBC & Chemistry Diagram: 06/07/19 13:00 06/07/19 13:00 - RADIOLOGY Radiology Studies Ordered: Category Date Time Status CHEST X-RAY PORTABLE* [RAD] Stat Radiology 06/07/19 11:42 Ordered Radiograph Interpretation: EXAM#: TYPE/EXAM: RESULT: [id number] RAD/CHEST X-RAY PORTABLE* Chest: Chest pain Impression: No acute chest pathology. Reported By: Tereso Azar MD 06/07/19 12:33 Medical Decision Making - Medical Decision Making 06/07/19 12:09 54 yo F with a long standing history of syncope, headaches Presenting to the emergency department with an episode of confusion and lightheadedness Also associated chest pain Per he is concerned about the increasing number of syncopal episode she is having She was seen by Dr. Hernández in the office 06/07/19 13:23 EKG: Twelve-lead EKG was performed and reviewed by me. There is normal sinus rhythm with a normal rate. The axis is normal. The intervals are normal. There are no ST or T wave abnormalities. Impression: Normal twelve-lead EKG 06/07/19 13:50 06/07/19 15:11 Laboratory Tests 06/07/19 06/07/19 06/07/19 13:00 13:00 13:00 WBC 7.8 Hgb 13.2 Hct 39.2 Plt Count 263 D BUN 15.5 Creatinine 0.9 Creatine Kinase 86 Troponin I < 0.02 Urine Blood Negative Urine Nitrite Negative Urine WBC (Auto) 2 Urine RBC (Auto) 0 U Epithel Cells (Auto) 1.8 Urine Bacteria (Auto) 162.[address] Koehler Will admit to her service for syncope Will contact Dr. Martinez again Clinical impression: syncope Discharge - Discharge Information Problems reviewed: Yes Clinical Impression/Diagnosis: Weakness Syncope Qualifiers: Syncope type: unspecified Qualified Code(s): R55 - Syncope and collapse Condition: Stable - Admission Yes - Follow up/Referral Referrals: Lebron Hernandez MD [Primary Care Provider] - - Patient Discharge Instructions - Post Discharge Activity
[2019-06-07 13:22] LABS: BASO % 0.5 % (0-2.0); EOS % 2.1 % (0-4.5); HEMATOCRIT 39.2 % (32.4-45.2); HEMOGLOBIN 13.2 GM/dL (10.7-15.3); LYMPH % 25.6 % (8-40); MCHC 33.7 g/dl (32.0-36.0); MEAN CELL VOLUME 77.1 fl (80-96); MONO % 8.1 % (3.8-10.2); NEUT % 63.7 % (42.8-82.8); PLATELET COUNT 263 K/MM3 (134-434); RBC 5.08 M/mm3 (3.60-5.2); RDW 14.8 % (11.6-15.6); WHITE BLOOD COUNT 7.8 K/mm3 (4.0-10.0)
[2019-06-07 13:35] LABS: EPI CELLS 1.8 /HPF (0-5/HPF); HYALINE CASTS 0 /lpf (0-8); URINE APPEARANCE CLEAR; URINE BACTERIA 162.2 /hpf (NEGATIVE); URINE BILIRUBIN NEGATIVE (NEGATIVE); URINE COLOR YELLOW; URINE GLUCOSE (UA) NEGATIVE (NEGATIVE); URINE KETONE NEGATIVE (NEGATIVE); URINE LEUK ESTERASE TRACE (NEGATIVE); URINE NITRITE NEGATIVE (NEGATIVE); URINE PROTEIN NEGATIVE (NEGATIVE); URINE RBC 0 /hpf (0-4); URINE UROBILINOGEN 0.2 mg/dL (0.2-1.0); URINE WBC 2 /hpf (0-5)
[2019-06-07 14:05] LABS: ALBUMIN 4.1 g/dl (3.4-5.0); ALK PHOS 126 U/L (45-117); ANION GAP 5 MMOL/L (8-16); BILIRUBIN,TOTAL 0.5 mg/dL (0.2-1); BLOOD UREA NITROGEN 15.5 mg/dL (7-18); CALCIUM 9.6 mg/dL (8.5-10.1); CHLORIDE 108 mmol/L (98-107); CO2 26 mmol/L (21-32); CREATININE 0.9 mg/dL (0.55-1.3); GLUCOSE,RANDOM 94 mg/dL (74-106); MAGNESIUM 2.5 mg/dL (1.8-2.4); POTASSIUM 4.2 mmol/L (3.5-5.1); SGOT/AST 28 U/L (15-37); SGPT/ALT 46 U/L (13-61); SODIUM 140 mmol/L (136-145); TOT PROT 8.4 g/dl (6.4-8.2)
[2019-06-07 15:14] LABS: INR 0.95 (0.83-1.09); PROTHROMBIN TIME (PATIENT) 11.2 SEC (9.7-13.0)
[2019-06-07 15:17] LABS: ACTIVATED PTT 33.4 SECONDS (25.2-36.5)
--- NOTE | 2019-06-07 19:16 | HP ---
Admitting History and Physical - Primary Care Physician PCP: Cecily Koehler - Admission History of Present Illness: The patient is a 54 year old female, with a significant PMH of poorly controlled HTN, HLD, and recently diagnosed brain lesions and vessel inflammation (on MRI, being treated by Dr. Martinez), who presents to the ED for syncope. Patient notes she was working on her bills at ~8:30 am, when she suddenly felt lightheaded and needed to sit down. While sitting down, she notes she had difficulty comprehending her bills and everything felt garbled. She additionally complains of chest heaviness, left-sided facial numbness and tingling, and nausea. Patient called her to come home, and he had her call EMS. While EMS was at her house, EMS notes she syncopized. En route to the ED, patient syncopized x2. While in the ED, patient syncopized during medical evaluation. Patient denies difficulty with comprehending while in the ED, but does endorse still feeling lightheaded. She notes multiple episodes of similar symptoms, but today is significantly worse than her prior. Allergies: NKA, NKDA Surgical History: Appendectomy Social History: Denies EtOH, tobacco, or illicit drug use PCP: Dr. Hernandez Neurologist: Dr. Martinez - Past Medical History Cardiovascular: Yes: HTN, Hyperlipdemia ...LMP: 11/27/13 - Past Surgical History Past Surgical History: Yes: Appendectomy, , Tubal Ligation - Smoking History Smoking history: Never smoked Have you smoked in the past 12 months: No - Alcohol/Substance Use Hx Alcohol Use: No Home Medications - Allergies Allergies/Adverse Reactions: Allergies Allergy/AdvReac Type Severity Reaction Status Date / Time No Known Allergies Allergy Verified 05/01/19 03:21 - Home Medications Home Medications: Ambulatory Orders Albuterol Sulfate Inhaler - [Ventolin HFA Inhaler -] 1 - 2 inh PO QID #1 inhaler 12/19/18 Losartan Potassium 50 mg PO HS 04/17/19 Metoprolol Tartrate [Lopressor -] 50 mg PO BID 04/17/19 Omeprazole 20 mg PO DAILY 04/17/19 Physical Examination Vital Signs: Vital Signs Temperature 97.9 F 06/07/19 19:01 Pulse Rate 81 06/07/19 19:01 Respiratory Rate 18 06/07/19 19:01 Blood Pressure 125/77 06/07/19 19:01 O2 Sat by Pulse Oximetry (%) 95 06/07/19 19:01 Constitutional: Yes: No Distress HENT: Yes: Atraumatic Neck: Yes: Supple Cardiovascular: Yes: Regular Rate and Rhythm Respiratory: Yes: CTA Bilaterally Gastrointestinal: Yes: Normal Bowel Sounds Extremities: Yes: WNL Neurological: Yes: Alert, Oriented Labs: CBC, BMP 06/07/19 13:00 06/07/19 13:00 Imaging - Results Cat Scan: Report Reviewed Problem List - Problems (1) Syncope Code(s): R55 - SYNCOPE AND COLLAPSE Qualifiers: Syncope type: unspecified Qualified Code(s): R55 - Syncope and collapse (2) HTN (hypertension) Code(s): I10 - ESSENTIAL (PRIMARY) HYPERTENSION (3) Hyperlipidemia Code(s): E78.5 - HYPERLIPIDEMIA, UNSPECIFIED Assessment/Plan Laboratory Tests 06/07/19 06/07/19 06/07/19 13:00 13:00 13:00 WBC 7.8 RBC 5.08 Hgb 13.2 Hct 39.2 MCV 77.1 L MCH 26.0 MCHC 33.7 RDW 14.8 Plt Count 263 D MPV 8.0 Absolute Neuts (auto) 4.9 Neutrophils % 63.7 D Lymphocytes % 25.6 D Monocytes % 8.1 Eosinophils % 2.1 Basophils % 0.5 Nucleated RBC % 0 PT with INR INR PTT (Actin FS) Sodium 140 Potassium 4.2 Chloride 108 H Carbon Dioxide 26 Anion Gap 5 L BUN 15.5 Creatinine 0.9 Est GFR (CKD-EPI)AfAm 83.43 Est GFR (CKD-EPI)NonAf 71.98 Random Glucose 94 Calcium 9.6 Magnesium 2.5 H Total Bilirubin 0.5 AST 28 ALT 46 Alkaline Phosphatase 126 H Creatine Kinase 86 Troponin I < 0.02 Total Protein 8.4 H Albumin 4.1 Urine Color Yellow Urine Appearance Clear Urine pH 7.0 Ur Specific [place] 1.006 L Urine Protein Negative Urine Glucose (UA) Negative Urine Ketones Negative Urine Blood Negative Urine Nitrite Negative Urine Bilirubin Negative Urine Urobilinogen 0.2 Ur Leukocyte Esterase Trace Urine WBC (Auto) 2 Urine RBC (Auto) 0 Urine Casts (Auto) 0 U Epithel Cells (Auto) 1.8 Urine Bacteria (Auto) 162.2 01/15/20 14:30 WBC RBC Hgb Hct MCV MCH MCHC RDW Plt Count MPV Absolute Neuts (auto) Neutrophils % Lymphocytes % Monocytes % Eosinophils % Basophils % Nucleated RBC % PT with INR 11.20 INR 0.95 PTT (Actin FS) 33.4 Sodium Potassium Chloride Carbon Dioxide Anion Gap BUN Creatinine Est GFR (CKD-EPI)AfAm Est GFR (CKD-EPI)NonAf Random Glucose Calcium Magnesium Total Bilirubin AST ALT Alkaline Phosphatase Creatine Kinase Troponin I Total Protein Albumin Urine Color Urine Appearance Urine pH Ur Specific [place] Urine Protein Urine Glucose (UA) Urine Ketones Urine Blood Urine Nitrite Urine Bilirubin Urine Urobilinogen Ur Leukocyte Esterase Urine WBC (Auto) Urine RBC (Auto) Urine Casts (Auto) U Epithel Cells (Auto) Urine Bacteria (Auto)
[2019-06-07] MEDS: METOPROLOL TARTRATE 50 MG TABLET (FP) PO SCH (21:17)
[2019-06-07] MEDS: LOSARTAN POTASSIUM 50 MG TABLET (FP) PO SCH (21:18)
[2019-06-07 21:56] VITALS: BMI 29.2
[2019-06-08 06:51] LABS: BASO % 0.6 % (0-2.0); EOS % 2.8 % (0-4.5); HEMATOCRIT 38.1 % (32.4-45.2); LYMPH % 35.8 % (8-40); MCH 26.2 pg (25.7-33.7); MCHC 34.1 g/dl (32.0-36.0); MEAN CELL VOLUME 76.9 fl (80-96); MEAN PLT VOLUME 8.5 fl (7.5-11.1); MONO % 8.2 % (3.8-10.2); NEUT % 52.6 % (42.8-82.8); PLATELET COUNT 264 K/MM3 (134-434); RBC 4.96 M/mm3 (3.60-5.2); RDW 15.1 % (11.6-15.6); WHITE BLOOD COUNT 8.6 K/mm3 (4.0-10.0)
[2019-06-08 07:26] LABS: ALBUMIN 3.9 g/dl (3.4-5.0); BILIRUBIN,TOTAL 0.5 mg/dL (0.2-1); BLOOD UREA NITROGEN 21.4 mg/dL (7-18); CALCIUM 9.5 mg/dL (8.5-10.1); CREATININE 0.9 mg/dL (0.55-1.3); POTASSIUM 4.2 mmol/L (3.5-5.1); TOT PROT 8.3 g/dl (6.4-8.2)
--- NOTE | 2019-06-08 07:57 | CON.CARD ---
Consult Consult Specialty:: cardiology Reason for Consultation:: syncope - History of Present Illness Chief Complaint: Pt A&Ox3; asymptomatic History of Present Illness: The patient is a 54 year old female, with a significant PMH of poorly controlled HTN,HLD,reports recently diagnosed brain lesions and vessel inflammation (on MRI, being treated by Dr. Martinez), overweight, who presents to the ED for syncope. Patient notes she was working on her bills at ~8:30 am, when she suddenly felt lightheaded and needed to sit down. While sitting down, she notes she had difficulty comprehending her bills and everything felt garbled. She additionally complains of chest heaviness, left-sided facial numbness and tingling, and nausea. Patient called her to come home, and he had her call EMS. While EMS was at her house, EMS notes she syncopized. En route to the ED, patient syncopized x2. While in the ED, patient syncopized during medical evaluation. Patient denies difficulty with comprehending while in the ED, but does endorse still feeling lightheaded. She notes multiple episodes of similar symptoms, but today is significantly worse than her prior. Allergies: NKA, NKDA Surgical History: Appendectomy Social History: Denies EtOH, tobacco, or illicit drug use PCP: Dr. Hernandez Neurologist: Dr. Martinez - History Source History Provided By: Patient, Medical Record Limitations to Obtaining History: Poor Historian - Past Medical History Cardio/Vascular: Yes: HTN, Hyperlipdemia Reproductive: Yes: Postmenopausal ...LMP: 11/27/13 ...: No - Past Surgical History Past Surgical History: Yes: Appendectomy, , Tubal Ligation - Alcohol/Substance Use Hx Alcohol Use: No - Smoking History Smoking history: Never smoked Have you smoked in the past 12 months: No Home Medications - Allergies Allergies/Adverse Reactions: Allergies Allergy/AdvReac Type Severity Reaction Status Date / Time No Known Allergies Allergy Verified 05/01/19 03:21 - Home Medications Home Medications: Ambulatory Orders Albuterol Sulfate Inhaler - [Ventolin HFA Inhaler -] 1 - 2 inh PO QID #1 inhaler 12/19/18 Losartan Potassium 50 mg PO HS 04/17/19 Metoprolol Tartrate [Lopressor -] 50 mg PO BID 04/17/19 Omeprazole 20 mg PO DAILY 04/17/19 Family Medical History Family History: Denies Review of Systems - Review of Systems Constitutional: reports: Weakness Eyes: reports: No Symptoms HENT: reports: No Symptoms Neck: reports: No Symptoms Cardiovascular: reports: Chest Pain (atypical) Respiratory: reports: No Symptoms Gastrointestinal: reports: No Symptoms Genitourinary: reports: No Symptoms Breasts: reports: No Symptoms Reported Musculoskeletal: reports: Muscle Weakness Integumentary: reports: No Symptoms Neurological: reports: Syncope Endocrine: reports: No Symptoms Hematology/Lymphatic: reports: No Symptoms Psychiatric: reports: No Symptoms - Risk Factors Known Risk Factors: Yes: Age, Hypercholesterolemia, Hypertension, Physical Inactivity, Other (overweight) Vital Signs: Vital Signs Temperature 98.2 F 06/08/19 06:00 Pulse Rate 80 06/08/19 06:00 Respiratory Rate 06/08/19 06:00 Blood Pressure 126/69 06/08/19 06:00 O2 Sat by Pulse Oximetry (%) 99 06/07/19 21:00 Constitutional: Yes: Calm, Obese Eyes: Yes: WNL HENT: Yes: WNL Neck: Yes: WNL Respiratory: Yes: WNL Gastrointestinal: Yes: WNL Renal/: Yes: WNL Cardiovascular: Yes: WNL JVD: No Carotid Bruit: No Heart Sounds: Yes: S1, S2 Musculoskeletal: Yes: WNL Extremities: Yes: WNL Edema: No Peripheral Pulses WNL: Yes Integumentary: Yes: WNL Neurological: Yes: WNL ...Motor Strength: WNL Psychiatric: Yes: WNL - Other Data Labs, Other Data: CBC, BMP 06/08/19 05:30 06/08/19 05:30 INR, PTT INR 0.95 (0.83-1.09) 06/07/19 14:30 Troponin, BNP 06/07/19 06/07/19 06/08/19 13:00 20:05 05:30 Troponin I < 0.02 < 0.02 < 0.02 Troponin, BNP 06/07/19 06/07/19 06/08/19 13:00 20:05 05:30 Troponin I < 0.02 < 0.02 < 0.02 Abnormal Lab Results 06/07/19 06/07/19 06/07/19 13:00 13:00 13:00 MCV 77.1 L Chloride 108 H Anion Gap 5 L BUN Magnesium 2.5 H Alkaline Phosphatase 126 H Total Protein 8.4 H Ur Specific [place] 1.006 L 06/08/19 06/08/19 05:30 05:30 MCV 76.9 L Chloride Anion Gap 6 L BUN 21.4 H Magnesium Alkaline Phosphatase 126 H Total Protein 8.3 H Ur Specific [place] Ejection Fraction %: LVEF > or = 40 % Imaging - Results Chest X-ray: Image Reviewed (no acute pathology) EKG: Image Reviewed (NSR; normal study) Other: Image Reviewed (telemetry: NSR; no arrhythmias or significant pauses) Problem List - Problems (1) Syncope Assessment/Plan: Maintaiin hydration. Orthostratic VS. ECHO 04/11: normal LVEF; no significant vavlular abnormalities. TNI < 0.02x 3. TSH WNL. LDL choleswterol >160 mg/dL; pt says she was recently put another medication for this. She was started on atorvastatin 80 mg daily here. Glucose; mildly elevated; f/u HGBA2c. For carotid artery US. Pt gives unclear PMHx; ? had stress test recently? Code(s): R55 - SYNCOPE AND COLLAPSE Qualifiers: Syncope type: unspecified Qualified Code(s): R55 - Syncope and collapse (2) Weakness Code(s): R53.1 - WEAKNESS (3) HTN (hypertension) Assessment/Plan: On losartan and metorprolol The importance of weight diet modification, weight loss, and increased exercise was discussed. Code(s): I10 - ESSENTIAL (PRIMARY) HYPERTENSION (4) Headache Assessment/Plan: Pt says she has "inflammation changes" in the brain, and plans to see her neurologist. CT head: no acute pahtology. Code(s): R51 - HEADACHE Qualifiers: Headache type: unspecified Headache chronicity pattern: acute headache Intractability: not intractable Qualified Code(s): R51 - Headache (5) Hyperlipidemia Code(s): E78.5 - HYPERLIPIDEMIA, UNSPECIFIED
[2019-06-08] MEDS ORDERED: PATIENT'S OWN MEDICATION (NON-FORMULARY) (Omeprazole [Omeprazole] 20 MG) PO SCH (10:00)
[2019-06-08] MEDS: HEPARIN NA (PORCINE) 5,000 UNITS/ML 1ML VIAL SQ SCH ×2 (11:22→22:04)
[2019-06-08] MEDS: PANTOPRAZOLE 20 MG TABLET PO SCH (11:23)
[2019-06-08] MEDS: METOPROLOL TARTRATE 50 MG TABLET (FP) PO SCH ×2 (11:23→22:02)
--- NOTE | 2019-06-08 11:56 | EKG ---
Test Reason : Blood Pressure : / mmHG Vent. Rate : 077 BPM Atrial Rate : 077 BPM P-R Int : 136 ms QRS Dur : 082 ms QT Int : 378 ms P-R-T Axes : 100 021 039 degrees QTc Int : 427 ms POOR DATA QUALITY, INTERPRETATION MAY BE ADVERSELY AFFECTED NORMAL SINUS RHYTHM NORMAL ECG WHEN COMPARED WITH ECG OF 17-APR-2019 09:09, NO SIGNIFICANT CHANGE WAS FOUND Confirmed by KASHIF ROMERO, MICHELLE ([id number]) on 06/08/2019 11:55:42 AM Referred By: Confirmed By:MICHELLE ROWLAND MD
--- NOTE | 2019-06-08 13:18 | ECHO ---
Name: DIARAM, JEET Exam:Adult Echocardiogram Study Date: 06/08/2019 09:05 AM Age: 54 yrs Height: 64 in Weight: 170 lb BSA: 1.8 m2 MMode/2D Measurements & Calculations Ao root diam: 3.4 cm LVOT diam: 2.0 cm LVLd ap4: 6.6 cm SV(MOD-sp4): 33.7 ml EDV(MOD-sp4): 69.4 ml LVLs ap4: 5.9 cm ESV(MOD-sp4): 35.7 ml RV S Cirilo: 12.6 cm/sec Doppler Measurements & Calculations MV E max cirilo: 50.4 cm/sec Ao V2 max: 116.0 cm/sec MV A max cirilo: 69.8 cm/sec Ao max P.4 mmHg MV E/A: 0.72 MV dec time: 0.18 sec FRANCES(V,D): 2.2 cm2 LV V1 max P.6 mmHg PA V2 max: 101.8 cm/sec LV V1 max: 80.0 cm/sec PA max P.1 mmHg Med Peak E' Cirilo: 5.9 cm/sec Med E/e': 8.6 Lat Peak E' Cirilo: 5.5 cm/sec Lat E/e': 9.1 Procedure A complete two-dimensional transthoracic echocardiogram was performed (2D, M-mode, Doppler and color flow Doppler). Left Ventricle The left ventricular size, thickness and function are normal. The left ventricular ejection fraction is normal. Ejection Fraction = 60-65%. The left ventricular wall motion is normal. Right Ventricle The right ventricle is normal in size and function. Atria Normal left and right atrial size and function. Mitral Valve There is no mitral regurgitation noted. Tricuspid Valve There is trace tricuspid regurgitation. There was insufficient TR detected to calculate RV systolic p ressure. Aortic Valve No hemodynamically significant valvular aortic stenosis. No aortic regurgitation is present. Pulmonic Valve There is no pulmonic valvular regurgitation. Great Vessels The aortic root is normal size. Pericardium/Pleura There is no pericardial effusion. Interpretation Summary The left ventricular size, thickness and function are normal The right ventricle is normal in size and function. There is trace tricuspid regurgitation. MD Issac Urrutia 06/08/2019 01:17 PM
[2019-06-08] MEDS ORDERED: ACETAMINOPHEN/CAFFEINE/BUTALBITAL 1 TAB PO PRN (13:55)
--- NOTE | 2019-06-08 13:59 | CON.NEURO ---
Consult Consult Specialty:: Juan Referred by:: PCP - History of Present Illness History of Present Illness: 54-year-old right-handed female patient well known to me from the office with a history of poorly controlled hypertension presented to the office for evaluation of headache came in yesterday with a chief complaint of an episode of near-syncope patient was at her home patient was doing her bills no report of any seizure-like activity noted chest pain no palpitation patient came in to the hospital patient had a CAT scan of the head carotid Doppler cardiology evaluated the patient. In May 02, 2019 patient had an MRI of the brain which showed areas of nonspecific white dots on the brain consistent with a history of chronic migraine reassurance was made patient was supposed to go for repeat MRI with contrast. - History Source History Provided By: Patient, Medical Record Limitations to Obtaining History: No Limitations - Past Medical History Cardio/Vascular: Yes: HTN, Hyperlipdemia ...LMP: 11/27/13 ...: No - Past Surgical History Past Surgical History: Yes: Appendectomy, , Tubal Ligation - Alcohol/Substance Use Hx Alcohol Use: No - Smoking History Smoking history: Never smoked Have you smoked in the past 12 months: No Home Medications - Allergies Allergies/Adverse Reactions: Allergies Allergy/AdvReac Type Severity Reaction Status Date / Time No Known Allergies Allergy Verified 05/01/19 03:21 - Home Medications Home Medications: Ambulatory Orders Albuterol Sulfate Inhaler - [Ventolin HFA Inhaler -] 1 - 2 inh PO QID #1 inhaler 12/19/18 Losartan Potassium 50 mg PO HS 04/17/19 Metoprolol Tartrate [Lopressor -] 50 mg PO BID 04/17/19 Omeprazole 20 mg PO DAILY 04/17/19 Family Medical History Family History: Unremarkable Review of Systems - Review of Systems Neurological: reports: Headache, Incoordination, Numbness Physical Exam-Neuro Vital Signs: Vital Signs Temperature 98.2 F 06/08/19 06:00 Pulse Rate 80 06/08/19 06:00 Respiratory Rate 20 06/08/19 09:00 Blood Pressure 126/69 06/08/19 06:00 O2 Sat by Pulse Oximetry (%) 98 06/08/19 09:00 Constitutional: Yes: Well Nourished Neck: Yes: WNL Cardiovascular: Yes: WNL Labs: CBC, BMP 06/08/19 05:30 06/08/19 05:30 INR, PTT INR 0.95 (0.83-1.09) 06/07/19 14:30 - Neuro Exam Level Of Consciousness: Yes: Oriented to Person, Oriented to Place, Oriented to Time Eyes: Yes: PERRLA Speech: WNL Dominant Hand: Right Cranial Nerves II-XII Intact: Yes Gag: Present DTR's: 1+ Left Bicep, 1+ Right Bicep, 1+ Left Tricep Response to light touch: Abnormal Response to pain prick: Abnormal Response to temperature: Abnormal Motor Strength: 3/5: Left Arm, Right Arm, Left Leg, Right Leg Gait: Deferred Imaging - Results Cat Scan: Image Reviewed Ultrasound: Image Reviewed Problem List - Problems (1) Syncope Code(s): R55 - SYNCOPE AND COLLAPSE Qualifiers: Syncope type: unspecified Qualified Code(s): R55 - Syncope and collapse Assessment/Plan migraine variant Vasovagal syncope Rule out brain aneurysm 1. ESR. 2. MRI of the brain without contrast. 3. Fioricet when necessary headache Thank you for allowing me to be part of this patient's neurological care Leo Martinez M.D.
[2019-06-08] MEDS ORDERED: ACETAMINOPHEN 325 MG TABLET (FP) ONE (19:58)
[2019-06-08] MEDS ORDERED: ACETAMINOPHEN 325 MG TABLET (FP) PO ONE (20:30)
[2019-06-08] MEDS ORDERED: ATORVASTATIN CA 80 MG TABLET (FP) PO SCH (22:00)
[2019-06-08] MEDS: LOSARTAN POTASSIUM 50 MG TABLET (FP) PO SCH (22:03)
--- NOTE | 2019-06-08 22:26 | PN ---
Progress Note, Physician - Current Medication List Current Medications: Active Medications Acetaminophen/Butalbital/Caffeine (Fioricet -) 1 tablet PO Q6H PRN PRN Reason: HEADACHE Stop: 06/11/19 13:55 Atorvastatin Calcium (Lipitor -) 80 mg PO HS [facility] Last Admin: 06/08/19 22:02 Dose: 80 mg Heparin Sodium (Porcine) (Heparin -) 5,000 unit SQ BID [facility] Last Admin: 06/08/19 22:04 Dose: 5,000 unit Losartan Potassium (Cozaar -) 50 mg PO HS [facility] Last Admin: 06/08/19 22:03 Dose: 50 mg Metoprolol Tartrate (Lopressor -) 50 mg PO BID [facility] Last Admin: 06/08/19 22:02 Dose: 50 mg Pantoprazole Sodium (Protonix -) 20 mg PO DAILY [facility] Last Admin: 06/08/19 11:23 Dose: 20 mg - Objective Vital Signs: Vital Signs Temperature 98 F 06/08/19 21:19 Pulse Rate 85 06/08/19 21:19 Respiratory Rate 20 06/08/19 21:19 Blood Pressure 114/60 06/08/19 21:19 O2 Sat by Pulse Oximetry (%) 97 06/08/19 21:00 Labs: CBC, BMP 06/08/19 05:30 06/08/19 05:30 INR, PTT INR 0.95 (0.83-1.09) 06/07/19 14:30
--- NOTE | 2019-06-09 08:11 | PN ---
Progress Note, Physician History of Present Illness: The patient is a 54 year old female, with a significant PMH of poorly controlled HTN,HLD,reports recently diagnosed brain lesions and vessel inflammation (on MRI, being treated by Dr. Martinez), overweight, who presents to the ED for syncope. Patient notes she was working on her bills at ~8:30 am, when she suddenly felt lightheaded and needed to sit down. While sitting down, she notes she had difficulty comprehending her bills and everything felt garbled. She additionally complains of chest heaviness, left-sided facial numbness and tingling, and nausea. Patient called her to come home, and he had her call EMS. While EMS was at her house, EMS notes she syncopized. En route to the ED, patient syncopized x2. While in the ED, patient syncopized during medical evaluation. Patient denies difficulty with comprehending while in the ED, but does endorse still feeling lightheaded. She notes multiple episodes of similar symptoms, but today is significantly worse than her prior. Allergies: NKA, NKDA Surgical History: Appendectomy Social History: Denies EtOH, tobacco, or illicit drug use PCP: Dr. Hernandez Neurologist: Dr. Martinez - Current Medication List Current Medications: Active Medications Acetaminophen/Butalbital/Caffeine (Fioricet -) 1 tablet PO Q6H PRN PRN Reason: HEADACHE Stop: 06/11/19 13:55 Atorvastatin Calcium (Lipitor -) 80 mg PO HS [facility] Last Admin: 06/08/19 22:02 Dose: 80 mg Heparin Sodium (Porcine) (Heparin -) 5,000 unit SQ BID [facility] Last Admin: 06/08/19 22:04 Dose: 5,000 unit Losartan Potassium (Cozaar -) 50 mg PO HS [facility] Last Admin: 06/08/19 22:03 Dose: 50 mg Metoprolol Tartrate (Lopressor -) 50 mg PO BID [facility] Last Admin: 06/08/19 22:02 Dose: 50 mg Pantoprazole Sodium (Protonix -) 20 mg PO DAILY [facility] Last Admin: 06/08/19 11:23 Dose: 20 mg - Objective Vital Signs: Vital Signs Temperature 97.6 F 06/09/19 02:00 Pulse Rate 62 06/09/19 06:00 Respiratory Rate 20 06/09/19 06:00 Blood Pressure 102/58 L 06/09/19 06:00 O2 Sat by Pulse Oximetry (%) 97 06/08/19 21:00 Eyes: Yes: WNL, Conjunctiva Clear, EOM Intact HENT: Yes: WNL, Atraumatic, Normocephalic Neck: Yes: WNL, Supple, Trachea Midline Cardiovascular: Yes: WNL, Regular Rate and Rhythm Respiratory: Yes: WNL, Regular, CTA Bilaterally Gastrointestinal: Yes: WNL, Normal Bowel Sounds Genitourinary: Yes: WNL Musculoskeletal: Yes: WNL Extremities: Yes: WNL Edema: No Integumentary: Yes: WNL Neurological: Yes: Alert, Oriented ...Motor Strength: WNL Psychiatric: Yes: WNL Labs: CBC, BMP 06/08/19 05:30 06/08/19 05:30 INR, PTT INR 0.95 (0.83-1.09) 06/07/19 14:30 Assessment/Plan - Problems (1) Syncope Assessment/Plan: Maintaiin hydration. Orthostratic VS. ECHO 04/11: normal LVEF; no significant vavlular abnormalities. TNI < 0.02x 3. TSH WNL. LDL choleswterol >160 mg/dL; pt says she was recently put another medication for this. She was started on atorvastatin 80 mg daily here. Glucose; mildly elevated; f/u HGBA2c. For carotid artery US. Pt gives unclear PMHx; ? had stress test recently? Code(s): R55 - SYNCOPE AND COLLAPSE Qualifiers: Syncope type: unspecified Qualified Code(s): R55 - Syncope and collapse (2) Weakness Code(s): R53.1 - WEAKNESS (3) HTN (hypertension) Assessment/Plan: On losartan and metorprolol The importance of weight diet modification, weight loss, and increased exercise was discussed. Code(s): I10 - ESSENTIAL (PRIMARY) HYPERTENSION (4) Headache Assessment/Plan: Pt says she has "inflammation changes" in the brain, and plans to see her neurologist. CT head: no acute pahtology. Code(s): R51 - HEADACHE Qualifiers: Headache type: unspecified Headache chronicity pattern: acute headache Intractability: not intractable Qualified Code(s): R51 - Headache (5) Hyperlipidemia Code(s): E78.5 - HYPERLIPIDEMIA, UNSPECIFIED
[2019-06-09] MEDS: METOPROLOL TARTRATE 50 MG TABLET (FP) PO SCH (10:30)
[2019-06-09] MEDS: PANTOPRAZOLE 20 MG TABLET PO SCH (10:30)
[2019-06-09] MEDS: HEPARIN NA (PORCINE) 5,000 UNITS/ML 1ML VIAL SQ SCH (10:31)
--- NOTE | 2019-06-09 10:40 | PN ---
Progress Note, Physician Chief Complaint: TELE: NSR Denies CP Denies SOB - Current Medication List Current Medications: Active Medications Acetaminophen/Butalbital/Caffeine (Fioricet -) 1 tablet PO Q6H PRN PRN Reason: HEADACHE Stop: 06/11/19 13:55 Atorvastatin Calcium (Lipitor -) 80 mg PO HS [facility] Last Admin: 06/08/19 22:02 Dose: 80 mg Heparin Sodium (Porcine) (Heparin -) 5,000 unit SQ BID [facility] Last Admin: 06/09/19 10:31 Dose: 5,000 unit Losartan Potassium (Cozaar -) 50 mg PO HS [facility] Last Admin: 06/08/19 22:03 Dose: 50 mg Metoprolol Tartrate (Lopressor -) 50 mg PO BID [facility] Last Admin: 06/09/19 10:30 Dose: 50 mg Pantoprazole Sodium (Protonix -) 20 mg PO DAILY [facility] Last Admin: 06/09/19 10:30 Dose: 20 mg - Objective Vital Signs: Vital Signs Temperature 97.6 F 06/09/19 02:00 Pulse Rate 62 06/09/19 06:00 Respiratory Rate 20 06/09/19 06:00 Blood Pressure 102/58 L 06/09/19 06:00 O2 Sat by Pulse Oximetry (%) 97 06/08/19 21:00 Constitutional: Yes: Calm Cardiovascular: Yes: Regular Rate and Rhythm Respiratory: Yes: CTA Bilaterally Gastrointestinal: Yes: Soft Edema: No Neurological: Yes: Alert, Oriented Labs: CBC, BMP 06/08/19 05:30 06/08/19 05:30 INR, PTT INR 0.95 (0.83-1.09) 06/07/19 14:30 - ....Imaging EKG: Image Reviewed Assessment/Plan Problem List - Problems (1) Syncope Assessment/Plan: ECHO 04/11: normal LVEF; no significant vavlular abnormalities. Neck CTA negative for dissection (equivocal finding on US) TNI < 0.02x 3. TSH WNL. TELE unremarkable thus far. Recommend outpt f/u for extended monitor Pt gives unclear PMHx; ? had stress test recently? Code(s): R55 - SYNCOPE AND COLLAPSE Qualifiers: Syncope type: unspecified Qualified Code(s): R55 - Syncope and collapse (2) HTN (hypertension) Assessment/Plan: On losartan and metop Currently controlled Code(s): I10 - ESSENTIAL (PRIMARY) HYPERTENSION (3) Headache Assessment/Plan: Pt says she has "inflammation changes" in the brain, and plans to see her neurologist. CT head: no acute pahtology. Neuro f/u Code(s): R51 - HEADACHE Qualifiers: Headache type: unspecified Headache chronicity pattern: acute headache Intractability: not intractable Qualified Code(s): R51 - Headache
[2019-06-09 14:45] VITALS: BP 120/70; PULSE 69; TEMP 97.9
== END 2019-06-09 16:59 | disposition home or self-care (01) ==
LOC: JER 11:11 → JERBED 17:28 → INTOOBSV 17:28 → J4W 20:36
PROVIDERS: ADMIT Internal Medicine; ATTEND Internal Medicine
PROC: 3E013GC Introduction of Other Therapeutic Substance into Subcutaneous Tissue, Percutaneous Approach (ICD-10-PCS; principal; 2019-06-07)
DX: R55 Syncope and collapse (principal); R53.1 Weakness; I10 Essential (primary) hypertension; E78.5 Hyperlipidemia, unspecified; R51 Headache; G93.9 Disorder of brain, unspecified
CPT/HCPCS: 36415; 70450-TC; 70496-TC; 70498-TC; 71045-TC-FY; 80053; 81003; 82550; 83036; 83735; 84443; 84484; 85025; 85610; 85651; 85730; 87086; 93005; 93010; 93306-TC; 93880-TC; 96372; 97116-GP; 97161-GP; 99285-25; G0378; J1644; Q9967

== ENCOUNTER 2019-06-19 14:52 | Emergency (ER) | payer OTHER ==
[2019-06-19 15:02] VITALS: BMI 25.7
[2019-06-19] MEDS ORDERED: SODIUM CHLORIDE 1,000 ML IV STA (15:13)
--- NOTE | 2019-06-19 15:15 | PDOC ---
Attending Attestation - Resident Resident Name: Divya Simmons - HPI HPI: 06/19/19 19:24 Pt presents to the ED complaining of episodes of generalized weakness, where she closes her eyes and appears less responsive. Gilma has has an extensive negative work up for these complaints. HAd an episode in the ED which resolved with speaking to her in a loud voice. - Physicial Exam PE: 06/19/19 19:25 Agree with resident exam. patient was alert and oriented and in no acute distress. Lungs are clear. HEart: rrr no m/r/.g Pulm: CTA b/l abdomen: soft, non tender, non distended. - Medical Decision Making 06/19/19 19:26 Pt presents to the ED complaining of questionable syncope episodes. Patient is s/p complete negative work up including EEG and CT head 10 days ago. LAbs checked to rule out anemia or electrolyte disturbance and are negative. POAtient reported that she only sleeps 2-3 hours per night. Differential includes sleep deprivation, anxiety, sleep apnea. Patient instructed to follow up with neurology and PCP.
[2019-06-19 15:56] LABS: BASO % 0.6 % (0-2.0); EOS % 2.3 % (0-4.5); HEMATOCRIT 34.5 % (32.4-45.2); HEMOGLOBIN 11.6 GM/dL (10.7-15.3); LYMPH % 31.2 % (8-40); MCH 25.7 pg (25.7-33.7); MCHC 33.5 g/dl (32.0-36.0); MEAN CELL VOLUME 76.9 fl (80-96); NEUT % 57.9 % (42.8-82.8); PLATELET COUNT 224 K/MM3 (134-434); RBC 4.49 M/mm3 (3.60-5.2); RDW 14.9 % (11.6-15.6)
[2019-06-19 16:19] LABS: INR 0.92 (0.83-1.09); PROTHROMBIN TIME (PATIENT) 10.9 SEC (9.7-13.0)
[2019-06-19 16:22] LABS: ACTIVATED PTT 30.7 SECONDS (25.2-36.5)
[2019-06-19 16:48] LABS: ALBUMIN 3.7 g/dl (3.4-5.0); ALK PHOS 116 U/L (45-117); ANION GAP 3 MMOL/L (8-16); BILIRUBIN,TOTAL 0.4 mg/dL (0.2-1); CALCIUM 8.9 mg/dL (8.5-10.1); CHLORIDE 111 mmol/L (98-107); CO2 26 mmol/L (21-32); CREATININE 0.9 mg/dL (0.55-1.3); GLUCOSE,RANDOM 97 mg/dL (74-106); POTASSIUM 4.3 mmol/L (3.5-5.1); SGOT/AST 32 U/L (15-37); SGPT/ALT 38 U/L (13-61); SODIUM 140 mmol/L (136-145); TOT PROT 8.1 g/dl (6.4-8.2)
--- NOTE | 2019-06-19 16:55 | PDOC ---
History of Present Illness - General Chief Complaint: Syncope/Near Syncope Stated Complaint: SYNCOPY Time Seen by Provider: 06/19/19 15:13 History Source: Patient Exam Limitations: No Limitations - History of Present Illness Initial Comments: Piper Russell is a 54 yo F w a hx of poorly controlled HTN, HLD, and recently diagnosed brain lesions and vessel inflammation (on MRI, being treated by Dr. Martinez), who presents to the ED for syncope. She presented similarly 10 days ago, went through an extensive workup which turned out to be negative and was discharged. Today she was at her neurologists office - Dr. Martinez, was sitting on the cough, dosed off for a few minutes and there was concern that she syncopized. When I interviewed the patient she dosed off again once or twice during the interview which her stated are what he is referring to by the syncopal episodes. Each time the patient dosed off she responded promptly to sternal rub and yelled at me. Denies chest pain, fevers, SOB, anemia, jiang failure, low blood pressure, or any complaints at the present time aside from being overall tired in life. Allergies: NKA, NKDA Surgical History: Appendectomy Social History: Denies EtOH, tobacco, or illicit drug use PCP: Dr. Hernandez Neurologist: Dr. Martinez Past History - Past Medical History Allergies/Adverse Reactions: Allergies Allergy/AdvReac Type Severity Reaction Status Date / Time No Known Allergies Allergy Verified 06/19/19 15:00 Home Medications: Ambulatory Orders Albuterol Sulfate Inhaler - [Ventolin HFA Inhaler -] 1 - 2 inh PO QID #1 inhaler 12/19/18 Losartan Potassium 50 mg PO HS 04/17/19 Metoprolol Tartrate [Lopressor -] 50 mg PO BID 04/17/19 Omeprazole 20 mg PO DAILY 04/17/19 Anemia: Yes Asthma: No Cancer: No Cardiac Disorders: No CVA: No COPD: No CHF: No Dementia: No Diabetes: No GI Disorders: (HEARTBURN) Disorders: No HTN: Yes Hypercholesterolemia: Yes Liver Disease: No Seizures: No Thyroid Disease: No Other medical history: SEEN BY CRYSTAL FOR SYNCOPE. - Surgical History Abdominal Surgery: Yes Appendectomy: Yes Cardiac Surgery: No Cholecystectomy: No Lung Surgery: No Neurologic Surgery: No Orthopedic Surgery: No - Immunization History Immunization Up to Date: Yes - Psycho Social/Smoking Cessation Hx Smoking History: Never smoked Have you smoked in the past 12 months: No Hx Alcohol Use: No Drug/Substance Use Hx: No Substance Use Type: None Hx Substance Use Treatment: No Cardiac Specific PMH - Complaint Specific PMHX Pacemaker: No Review of Systems - Review of Systems Able to Perform ROS?: Yes Comments:: CONSTITUTIONAL: Absent: fever, no chills, no fatigue EYES: Absent: visual changes ENT: Absent: ear pain, no sore throat CARDIOVASCULAR: Absent: chest pain, no palpitations RESPIRATORY: Absent: cough, no SOB GI: Absent: abdominal pain, no nausea, no vomiting, no constipation, no diarrhea GENITOURINARY: Absent: dysuria, no frequency, no hematuria MUSKULOSKELETAL: Absent: back pain, no arthralgia, no myalgia SKIN: Absent: rash NEURO: Absent: headache *Physical Exam - Vital Signs Last Vital Signs Temp Pulse Resp BP Pulse Ox 98.1 F 83 20 150/89 100 06/19/19 18:00 06/19/19 18:00 06/19/19 18:00 06/19/19 18:00 06/19/19 18:00 - Physical Exam GENERAL: Well-appearing, well-nourished. No apparent distress. HEENT: Normocephalic, atraumatic. PERRL, EOM intact. CARDIOVASCULAR: Normal S1, S2. Regular rate and rhythm. PULMONARY: No evidence of respiratory distress. Lungs clear to auscultation bilaterally. No wheezing, rales or rhonchi. ABDOMEN: Soft, non-distended, non-tender. EXTREMITIES: Normal ROM in all four extremities. No gross deformities. SKIN: Warm, dry. No rash NEUROLOGICAL: No focal neurological deficits. ED Treatment Course - LABORATORY CBC & Chemistry Diagram: 06/19/19 15:30 06/19/19 15:30 - ADDITIONAL ORDERS Additional order review: Laboratory Results 06/19/19 06/19/19 06/19/19 18:00 15:30 15:30 PT with INR 10.90 INR 0.92 PTT (Actin FS) 30.7 Sodium 140 Potassium 4.3 Chloride 111 H Carbon Dioxide 26 Anion Gap 3 L BUN 14.0 Creatinine 0.9 Est GFR (CKD-EPI)AfAm 83.43 Est GFR (CKD-EPI)NonAf 71.98 Random Glucose 97 Calcium 8.9 Total Bilirubin 0.4 AST 32 ALT 38 Alkaline Phosphatase 116 Creatine Kinase 100 Troponin I < 0.02 Total Protein 8.1 Albumin 3.7 Urine Color Yellow Urine Appearance Clear Urine pH 7.5 Ur Specific [place] 1.007 L Urine Protein Negative Urine Glucose (UA) Negative Urine Ketones Negative Urine Blood Negative Urine Nitrite Negative Urine Bilirubin Negative Urine Urobilinogen 0.2 Ur Leukocyte Esterase Trace Urine WBC (Auto) 2 Urine RBC (Auto) 0 Urine Casts (Auto) 0 U Epithel Cells (Auto) 2.5 Urine Bacteria (Auto) 58.4 06/19/19 15:30 RBC 4.49 MCV 76.9 L MCHC 33.5 RDW 14.9 MPV 8.0 Neutrophils % 57.9 Lymphocytes % 31.2 Monocytes % 8.0 Eosinophils % 2.3 Basophils % 0.6 - RADIOLOGY Radiology Studies Ordered: Category Date Time Status CHEST X-RAY PORTABLE* [RAD] Stat Radiology 06/19/19 15:14 Completed - Medications Given in the ED: ED Medications Discontinued Medications Generic Name Dose Route Start Last Admin Trade Name Freq PRN Reason Stop Dose Admin Sodium Chloride 1,000 mls @ 1,000 mls/hr 06/19/19 15:13 06/19/19 15:58 Normal Saline - IV 06/19/19 16:12 1,000 mls/hr ASDIR STA Administration Medical Decision Making - Medical Decision Making Piper Russell is a 54 yo F w a hx of poorly controlled HTN, HLD, and recently diagnosed brain lesions and vessel inflammation (on MRI, being treated by Dr. Martinez), who presents to the ED for syncope. She presented similarly 10 days ago, went through an extensive workup which turned out to be negative and was discharged. Today she was at her neurologists office - Dr. Martinez, was sitting on the cough, dosed off for a few minutes and there was concern that she syncopized. When I interviewed the patient she dosed off again once or twice during the interview which her stated are what he is referring to by the syncopal episodes. Each time the patient dosed off she responded promptly to sternal rub and yelled at me. Denies chest pain, fevers, SOB, anemia, jiang failure, low blood pressure, or any complaints at the present time aside from being overall tired in life. Vital Signs Temp Pulse Resp BP Pulse Ox 98.1 F 83 20 150/89 100 06/19/19 18:00 06/19/19 18:00 06/19/19 18:00 06/19/19 18:00 06/19/19 18:00 DDx IBNLT: anxiety, decreased sleep, electrolyte/metabolic disturbance, anemia - Labs unremarkable, Trop negative - Urine clean Disposition: PCP and neuro FU as outpatient - Sleep hygiene education Discharge - Discharge Information Problems reviewed: Yes Clinical Impression/Diagnosis: Tired, Malaise and fatigue Condition: Improved Disposition: HOME - Admission No - Follow up/Referral Referrals: Joseph Hernandez [Primary Care Provider] - Leo Martinez MD [Staff Physician] - - Patient Discharge Instructions Patient Printed Discharge Instructions: DI for Muscle Weakness, Insomnia, Insomnia (Alternative Therapy) Additional Instructions: Please get good sleep at home. You can discuss sleep medicines with your primary care physician in a few days. You are likely feeling weak in the day because of your lack of sleep. Please return to the ED if you have new or worsening symptoms. Print Language: TURKISH - Post Discharge Activity
[2019-06-19 18:20] VITALS: BP 150/89; PULSE 83; TEMP 98.1
[2019-06-19 19:10] LABS: EPI CELLS 2.5 /HPF (0-5/HPF); HYALINE CASTS 0 /lpf (0-8); PH,URINE 7.5 (5.0-8.0); URINE APPEARANCE CLEAR; URINE BACTERIA 58.4 /hpf (NEGATIVE); URINE BILIRUBIN NEGATIVE (NEGATIVE); URINE COLOR YELLOW; URINE GLUCOSE (UA) NEGATIVE (NEGATIVE); URINE KETONE NEGATIVE (NEGATIVE); URINE LEUK ESTERASE TRACE (NEGATIVE); URINE NITRITE NEGATIVE (NEGATIVE); URINE PROTEIN NEGATIVE (NEGATIVE); URINE RBC 0 /hpf (0-4); URINE UROBILINOGEN 0.2 mg/dL (0.2-1.0); URINE WBC 2 /hpf (0-5)
== END 2019-06-19 18:05 | disposition home or self-care (01) ==
LOC: JER 14:52
PROC: 3E0337Z Introduction of Electrolytic and Water Balance Substance into Peripheral Vein, Percutaneous Approach (ICD-10-PCS; principal; 2019-06-19)
DX: R53.83 Other fatigue (principal); R53.81 Other malaise; Z72.820 Sleep deprivation; I10 Essential (primary) hypertension; G93.9 Disorder of brain, unspecified
CPT/HCPCS: 36415; 71045-TC-FY; 80053; 81003; 82550; 84484; 85025; 85610; 85730; 96360; 99283-25; J7030

== ENCOUNTER 2021-07-23 10:49 | Inpatient (IN) | payer OTHER ==
[2021-07-23 19:42] LABS: HEMATOCRIT 35.9 % (32.4-45.2); HEMOGLOBIN 12.3 GM/dL (10.7-15.3); MCH 26.2 pg (25.7-33.7); MCHC 34.3 g/dl (32.0-36.0); MEAN CELL VOLUME 76.4 fl (80-96); MEAN PLT VOLUME 7.9 fl (7.5-11.1); PLATELET COUNT 225 10^3/uL (134-434); RDW 15.4 % (11.6-15.6); WHITE BLOOD COUNT 6.3 K/mm3 (4.0-10.0)
[2021-07-23 19:56] LABS: CALCIUM 9.1 mg/dL (8.5-10.1)
[2021-07-23 19:57] LABS: ALBUMIN 3.8 g/dl (3.4-5.0)
[2021-07-23 20:00] LABS: BILIRUBIN,DIRECT 0.1 mg/dL (0.0-0.2); CREATININE 0.8 mg/dL (0.55-1.3)
[2021-07-23 20:03] LABS: BILIRUBIN,TOTAL 0.3 mg/dL (0.2-1); TOT PROT 7.7 g/dl (6.4-8.2)
[2021-07-24 01:30] VITALS: BMI 27.4
[2021-07-24] MEDS ORDERED: FLU VACC QS2021-22(6MOS UP)/PF 60 MCG/0.5 ML SYRINGE IM ONE (10:00)
[2021-07-24] MEDS: ENOXAPARIN NA (PORCINE) 30 MG/0.3 ML DISP.SYRIN SQ SCH (10:09)
[2021-07-24] MEDS: METOPROLOL TARTRATE 25 MG TABLET (FP) PO SCH (21:37)
[2021-07-24] MEDS: TOPIRAMATE 25 MG TABLET PO SCH (21:37)
[2021-07-24] MEDS ORDERED: MELATONIN 5 MG TABLETS PO ONE (22:30)
[2021-07-25] MEDS: METOPROLOL TARTRATE 25 MG TABLET (FP) PO SCH (09:24)
[2021-07-25] MEDS: TOPIRAMATE 25 MG TABLET PO SCH (09:24)
[2021-07-25] MEDS: ENOXAPARIN NA (PORCINE) 30 MG/0.3 ML DISP.SYRIN SQ SCH (09:25)
[2021-07-25] MEDS ORDERED: LOSARTAN POTASSIUM 50 MG TABLET PO SCH (10:00)
[2021-07-25 13:02] VITALS: BP 134/82; PULSE 70; TEMP 98.9
== END 2021-07-25 18:07 | disposition home or self-care (01) | DRG 53 ==
LOC: J4S 16:12
PROVIDERS: ADMIT Psychiatry & Neurology Neurology; ATTEND Psychiatry & Neurology Neurology
PROC: 4A00X4Z Measurement of Central Nervous Electrical Activity, External Approach (ICD-10-PCS; principal; 2021-07-24)
DX: G40.909 Epilepsy, unspecified, not intractable, without status epilepticus (principal); I10 Essential (primary) hypertension; R55 Syncope and collapse; J45.909 Unspecified asthma, uncomplicated; G43.909 Migraine, unspecified, not intractable, without status migrainosus; E78.5 Hyperlipidemia, unspecified; Z87.11 Personal history of peptic ulcer disease
CPT/HCPCS: 36415; 80048; 80076; 85027; 93005; 93010; 95705; C9803; U0003; U0005